=== PATIENT | male | born 1995 | race Caucasian/White ===

== ENCOUNTER 2025-06-05 21:09 | Observation (INO) | payer MEDICAID, SELFPAY ==
--- NOTE | ~2025-06-05 | CT_ITS ---
EXAMINATION: CT abdomen pelvis wo con DATE: 06/05/2025 23:46 INDICATION: Left flank pain. TECHNIQUE: Computed tomography (CT) of the abdomen and pelvis was performed without intravenous contr ast. The dose-length product was 1633.92 mGy-cm. Automated exposure control and iterative reconstruct ion technique were employed. COMPARISON: None. FINDINGS: Lung bases unremarkable. No significant pleural or pericardial effusion. Heart size normal. Fatty infiltration of the liver. There are cholecystectomy clips. There is a left internal ureteral stent with dilation of the left renal pelvis and renal collecting systems. There are multiple left re nal stones. Distal coil of the stent in the bladder. Proximal coil in the renal pelvis. No ureteral s tones identified. Mild left perinephric stranding. The spleen, pancreas, adrenal glands are unremarka ble. No significant vascular abnormality. No lymphadenopathy. Small accessory splenule. Prior appende ctomy. Small fat-containing umbilical hernia. No acute osseous abnormality. IMPRESSION: 1. Moderate dilation of the left renal collecting system and pelvis. Left internal ureteral stent in expected position. 2: Left nephrolithiasis. Reviewed, dictated and finalized at location [] IMPRESSION: 1. Moderate dilation of the left renal collecting system and pelvis. Left inter nal ureteral stent in expected position. 2: Left nephrolithiasis.
[2025-06-05 21:14] VITALS: BP 148/77; PULSE 97; RESP 20; O2SAT 97
[2025-06-05 22:41] LABS: Add Urine Microscopic? YES; Appearance Urine Turbid (Clear); Glucose Urine UA Negative (Negative); Leukocyte Esterase Ur 2+ LEU/UL (Negative); Need Manual Microscopic Reviewed; Nitrate Urine Negative (Negative); Specific Grav Ur 1.027 (1.001-1.035)
[2025-06-05 23:07] VITALS: BP 156/108; O2SAT 97
--- OUTSIDE RECORDS SUMMARY | 2025-06-05 23:40 | XMS_ITS | Clinical Summary ---
Author Organization 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 Role Phone No, Physician Primary Care Provider Allergies Active Allergy Reactions Criticality Noted Date Comments Penicillin G Unknown 03/21/2025 Medications tamsulosin (FLOMAX) 0.4 mg extended release capsuleIndicatio ns:Bladder Outlet Obstruction Take 1 capsule (0.4 mg total) by mouth daily 30 capsule 5 Active acetaminophen 500 mg capsuleIndicatio ns:Pain Take 2 capsules (1,000 mg total) by mouth every 6 (six) hours as needed for pain 30 capsule 5 Active trospium (SANCTURA) 20 mg tablet Take 1 tablet (20 mg total) by mouth 2 (two) times a day as needed (bladder spasm) 60 tablet 5 Active Active Problems Problem Noted Date Diagnosed Date Abnormal serum level of lipase 03/22/2025 Assessment & Plan (03/22/2025 2:45 PM CDT): Spurious asymptomatic elevated lipase level, no associated pain or symptoms to suggest pancreatitis, no abnormalities evident in pancreatic body or ducts within limits of non contrast CT imaging. Does not require any further workup or intervention at this time OK with discharge from end, barring any unforseen abnormalities on scrotal ultrasound Ureterolithiasis 03/21/2025 Ureteral stone with hydronephrosis 03/21/2025 Encounters Date Type Department Care Team Description 05/27/2025 Telephone [facility] Advanced Medicine ([facility]) - [facility]rology [address] 11th [place] [address] [place] [address] Garima Le B.A. 04/15/2025 Telephone [facility]rology [address] [place] [address] 11th [place] [address] [place] [address] Garima Le B.A. 04/10/2025 Telephone [facility] [address] [place] [address] [address]th [place] [address] Garima Le B.A. 04/07/2025 Telephone [facility] Urology [address] [place] [address] 11th [place] [address] Garima Le B.A. 03/24/2025 Telephone [facility]rology [address] [place] [address] 11th [place] [address] Garima Le, B.AEmily 03/21/2025 11:30 PM CDT - 03/22/2025 12:55 AM CDT Surgery [facility] Operating Room [address] [place] [address] Rachel Bryant MD CYSTOSCOPY, LEFT URETERAL STENT PLACEMENT, LEFT RETROGRADE PYELOGRAM 03/21/2025 11:09 PM CDT Anesthesia Event [facility] Operating Room [address] [place] [address] Alek Arana MD Najrabi, Khatera, CRNA 03/21/2025 9:48 AM CDT - 03/23/2025 12:51 PM CDT Hospital [address] [address] [place] MD Metcalf, Meredith, MD Ureterolithiasis (Primary Dx); Ureteral stone with hydronephrosis Discharge Disposition: Discharge to home or self care from Last 3 Months Social History Tobacco Use Types Packs/Day Years Used Date Smoking Tobacco: Every Day Vaping Started: 06/2019 Smokeless Tobacco: Never Tobacco Cessation:Ready to Q uit: No; Counseling Given: No Personal Safety Answer Date Recorded Have you ever been in or are you currently in a harmful physical or emotional relationship or is someone making you feel afraid or unsafe? Denies 03/21/2025 Sex and Gender Information Value Date Recorded Sex Assigned at Not on file Legal Sex Male 5:40 AM CDT Gender Identity Not on file Sexual Orientation Not on file Obstetrics History Last Filed Vital Signs Vital Sign Reading Time Taken Comments Blood Pressure 125/77 03/23/2025 12:00 PM CDT Pulse 68 03/23/2025 12:00 PM CDT Temperature 37 C (98.6 F) 03/23/2025 12:00 PM CDT Respiratory Rate 16 03/23/2025 12:00 PM CDT Oxygen Saturation 96% 03/23/2025 7:20 AM CDT Inhaled Oxygen Concentration - - Weight 113.4 kg (250 lb) 03/21/2025 1:40 PM CDT Height 180.3 cm (5' 11) 03/21/2025 1:40 PM CDT Body Mass Index 34.87 03/21/2025 1:40 PM CDT Plan of Treatment Health Maintenance Due Date Last Done Comments Depression Screening 1996 Hepatitis C Screening 1996 DTaP/Tdap/Td Vaccine (1 - Tdap) 2007 Varicella Vaccines (1 of 2 - 13+ 2-dose series) 2008 Hepatitis B Screening 2014 Regular Well Visit/Exam 18-64 2014 Pneumococcal vaccine <65 (1 of 2 - PCV) 2015 HPV Vaccines (1 - 3-dose SCDM series) 2023 Influenza Vaccine (#1) 2025 Medical Devices Implanted Type Area Vat Skimmer Device Identifier Shelf Expiration Date Model / Serial / Lot [employer] Universa 6fr 28cm Firm Positioner Monofilament Tether Stent [id number] - [id number] Implanted:Qty: 1 on 03/21/2025 by Rachel Bryant MD at [facility] Stent Left: Ureter [employer] 12/11/2027 [id number] / / [id number] Procedures Procedure Name Priority Date/Time Associated Diagnosis Comments FL FLUOROSCOPY < 1 HOUR IP Routine 03/29/2025 7:10 AM CDT US SCROTUM Pending Discharge 03/22/2025 12:16 PM CDT EGFR Timed 03/22/2025 6:54 AM CDT BASIC METABOLIC PANEL Timed 03/22/2025 6:54 AM CDT CBC WITHOUT DIFFERENTIAL Routine 03/22/2025 6:54 AM CDT N. GONORRHOEAE/C. TRACHOMATIS AMPLIFICATION STAT 03/22/2025 2:22 AM CDT NM AN PROCEDURE PLACEHOLDER Routine 03/21/2025 11:34 PM CDT NM AN ELECTIVE SUPRAGLOTTIC AIRWAY Routine 03/21/2025 11:34 PM CDT CYSTOSCOPY PLACEMENT URETERAL STENT 03/21/2025 11:14 PM CDT Ureteral stone with hydronephrosis TYPE AND SCREEN STAT 03/21/2025 12:16 PM CDT APTT STAT 03/21/2025 12:16 PM CDT PROTIME-INR STAT 03/21/2025 12:[address] BODY OUTSIDE CONSULT Routine 03/21/2025 11:01 AM CDT EGFR STAT 03/21/2025 10:18 AM CDT DIFFERENTIAL AUTO STAT 03/21/2025 10:18 AM CDT URINALYSIS AND REFLEX TO MICROSCOPIC STAT 03/21/2025 10:18 AM CDT LIPASE STAT 03/21/2025 10:18 AM CDT COMPREHENSIVE METABOLIC PANEL STAT 03/21/2025 10:18 AM CDT CBC WITH AUTO DIFFERENTIAL STAT 03/21/2025 10:18 AM CDT from Last 3 Months Results * FL Fluoroscopy < 1 Hour (03/29/2025 7:10 AM CDT) Narrative [facility] - 03/29/2025 7:10 AM CDT The images from this study are not interpreted by Radiology. Please refer to the physician's procedure / OR operative note. Rachel Bryant MD IMG FLUOROSCOPY PROCEDURES F inal Result [facility] * US Scrotum (03/22/2025 12:16 PM CDT) Anatomical Region Laterality Modality Testis N/A Ultrasound 03/23/2025 7:46 AM CDT Impressions 03/23/2025 7:46 AM CDT 1. No evidence of testicular torsion or suspicious testicular mass. 2. Small cystic lesion associated with the scrotum overlying the left testis, which is too small to definitively characterize, but may represent a tiny tunica albuginea cyst. Recommend continued clinical attention with repeat imaging if there is persistent growth. Electronically signed by: Young Li M.D. Narrative 03/23/2025 7:46 AM CDT EXAMINATION: SCROTAL SONOGRAM HISTORY: Nontraumatic left testicular pain. COMPARISON: None available. FINDINGS: The testes are normal in size and appearance. The right testis measures 4.8 cm by 3.4 cm by 2.4 cm and the left measures 4.8 cm by 3.3 cm by 2.4 cm. No focal lesions are seen. The right and left epidiymis are normal. Small cystic lesion associated with the scrotum overlying the left testis (image 50) which measures 0.3 cm in size, which is too small to definitively characterize, but may represent a small tunica albuginea cyst. Procedure Note Young Li MD - 03/23/2025 EXAMINATION: SCROTAL SONOGRAM HISTORY: Nontraumatic left testicular pain. COMPARISON: None available. FINDINGS: The testes are normal in size and appearance. The right testis measures 4.8 cm by 3.4 cm by 2.4 cm and the left measures 4.8 cm by 3.3 cm by 2.4 cm. No focal lesions are seen. The right and left epidiymis are normal. Small cystic lesion associated with the scrotum overlying the left testis (image 50) which measures 0.3 cm in size, which is too small to definitively characterize, but may represent a small tunica albuginea cyst. IMPRESSION: 1. No evidence of testicular torsion or suspicious testicular mass. 2. Small cystic lesion associated with the scrotum overlying the left testis, which is too small to definitively characterize, but may represent a tiny tunica albuginea cyst. Recommend continued clinical attention with repeat imaging if there is persistent growth. Electronically signed by: Young Li M.D. us Rachel Bryant MD IMG US PROCEDURES Final Resu lt * eGFR (03/22/2025 6:54 AM CDT) eGFR 78 >=60 mL/min/1. 73 m2 Comment: Interpretive Data Reference Interval Normal >/= 90 mL/min/1.73m2 Mildly decreased* 60 - 89 mL/min/1.73m2 Mildly to moderately decreased 45 - 59 mL/min/1.73m2 Moderately to severely decreased 30 - 44 mL/min/1.73m2 Severely decreased 15 - 29 mL/min/1.73m2 Kidney Failure < 15 mL/min/1.73m2 *Relative to young adult level Estimated glomerular filtration rate is determined by the 2020 CKD-EPI equation recommended by the National Kidney Foundation (A Unifying Approach to GFR Estimation: Recommendations of the NKF-ASK Task Force on Reassessing the Inclusion of Race in Diagnosing Kidney Disease, JASN 2020). The CKD-EPI equation should not be used for patients with unstable renal function and has not been validated in children and those over 70. Current interpretive data was last reviewed 2021. Blood 03/22/2025 6:54 AM CDT 03/22/2025 7:54 AM CDT Rachel Bryant MD LAB BLOOD ORDERABLES Final R esult Performing Organization Address [facility] Co de Phone Number [facility] [place] [address] * (ABNORMAL) CBC without differential (03/22/2025 6:54 AM CDT) WBC 7.80 3.80 - 9.90 K/cumm Hgb 13.5 13.0 - 17.5 g/dL [facility] Hct 39.7 38.9 - 50.3 % [facility] Plt 238 150 - 400 K/cumm [facility] MPV 8.9(L) 9.1 - 12.3 fL [facility] RBC 4.77 4.30 - 5.80 M/cumm [facility] MCV 83.2 81.3 - 96.4 fL [facility] MCH 28.3 27.1 - 33.3 pg [facility] MCHC 34.0 32.3 - 35.7 g/dL [facility] RDW CV 12.5 11.1 - 14.9 % [facility] RDW SD 37.8 35.7 - 48.1 fL [facility] NRBC abs 0.00 0.00 - 0.01 K/cumm [facility] Blood 03/22/2025 6:54 AM CDT 03/22/2025 7:16 AM CDT Rachel Bryant MD LAB BLOOD ORDERABLES Final R esult Performing Organization Address City/[facility]/ZIP Co de Phone Number [facility] Department [place] [address] * (ABNORMAL) Basic metabolic panel (03/22/2025 6:54 AM CDT) Pathologist [facility] Sodium 142 135 - 145 mmol/L Potassium, pl 3.9 3.3 - 4.9 mmol/L [facility] Comment:Reviewed Chloride 108 97 - 110 mmol/L [facility] CO2 27 22 - 32 mmol/L [facility] Anion gap 7 2 - 15 mmol/L [facility] BUN 11 6 - 25 mg/dL [facility] Creatinine 1.28 0.80 - 1.30 mg/dL [facility] Glucose 106 70 - 199 mg/dL [facility] Comment: Interpretive Data Fasting glucose >/= 126 mg/dl is diagnostic for diabetes. Fasting is defined as no caloric intake for at least 8 hours. Fasting glucose between 100 mg/dl to 125 mg/dl is diagnostic of prediabetes. In a patient with classic symptoms of hyperglycemia or hyperglycemic crisis, a random glucose >/= 200 mg/dl is diagnostic for diabetes. In the absence of unequivocal hyperglycemia, results should be confirmed by repeat testing. The classification and Diagnosis of Diabetes Diabetes Care 2021; 46: S19-S40. Current interpretive data was last revised 2022. Calcium 8.4(L) 8.5 - 10.3 mg/dL [facility] Blood 03/22/2025 6:54 AM CDT 03/22/2025 7:16 AM CDT Rachel Bryant MD LAB BLOOD ORDERABLES Final R esult [facility] [place] [address] * N. gonorrhoeae/C. trachomatis Amplification Urine (03/22/2025 2:22 AM CDT) C. trachomatis Not Detected Not Detected [facility] N. gonorrhoeae Not Detected Not Detected [facility] Comment: Interpretive Data This assay detects Chlamydia trachomatis and Neisseria gonorrhoeae by nucleic acid amplification testing (NAAT). This assay has been cleared by the [place] Food and Drug administration. The performance characteristics of this test have been verified by the [facility] Molecular Infectious Disease laboratory. The performance characteristics of this test have not been evaluated in individuals less than 14 years of age. Current Interpretive Data last revised 2023. Urine (None) 03/22/2025 2:22 AM CDT 03/22/2025 5:38 AM CDT Rachel Bryant MD LAB MICROBIOLOGY - GENERAL O RDERABLES Final Result Performing Organization Address City/[facility]/ZIP Co de Phone Number [facility] [place] [address] [facility] * NM AN ELECTIVE SUPRAGLOTTIC AIRWAY, NM AN PROCEDURE PLACEHOLDER (03/21/2025 11:34 PM CDT) Narrative Rustam Everett, JESSIE - 03/21/2025 11:34 PM CDT Rustam Everett, JESSIE 03/21/2025 11:34 PM Airway Patient location: OR Urgency: elective Indications for airway management: anesthesia Difficult airway: no Emergent airway documentation: Risks and benefits discussed: yes Consent obtained: yes Consent given by: parent Airway prep: Preoxygenated: yes Patient position: sniffing MILS maintained throughout: yes Mask difficulty assessment: 0 - not attempted Spontaneous ventilation during airway: present Sedation level during airway: GA Final airway details: Final airway type: supraglottic airway Final supraglottic airway: IGel SGA size: 5 Number of attempts: 1no Alek Arana MD ANESTHESIA ORDERABLES Fi nal Result * aPTT (03/21/2025 12:16 PM CDT) aPTT 36 28 - 38 sec Comment: Interpretive Data Heparin therapeutic range: 66.0 - 100.0 seconds. Range based on correlation with therapeutic heparin activity range of 0.3 - 0.7 Units/mL. Current interpretive data was last revised on 2023. Blood 03/21/2025 12:1 6 PM CDT 03/21/2025 12:30 PM CDT [place] Howard MD LAB BLOOD ORDERABLES Patricia l Result Performing Organization Address City/[facility]/ZIP Co de Phone Number [facility] [place] [address] * (ABNORMAL) Protime-INR (03/21/2025 12:16 PM CDT) PT 15.5(H) 9.7 - 13.0 sec INR 1.42(H) 0.90 - 1.20 [facility] Comment: Interpretive data Oral anticoagulant therapeutic ranges: Venous thromboembolism prophylaxis or treatment: 2.0-3.0 CARDIOLOGY Standard range: 2.0-3.0 High-intensity range: 2.5-3.5 Refer to indication-specific guidelines for appropriate target ranges for prosthetic heart valve replacement. Current interpretive data was last revised on 2019. Blood 03/21/2025 12:1 6 PM CDT 03/21/2025 12:30 PM CDT [place] Howard MD LAB BLOOD ORDERABLES Patricia l Result Performing Organization Address City/[facility]/[place] [address] * Type and screen (03/21/2025 12:16 PM CDT) Pathologist [facility] Vanesa, indirect Negative ABO Rh A Negative [facility] Blood 03/21/2025 12:1 6 PM CDT 03/21/2025 12:30 PM CDT Narrative [facility] - 03/21/2025 1:18 PM CDT Has the patient had Daratumumab or Isatuximab in the past 6 months?->Unknown [place] Howard MD LAB BLOOD BANK TEST [place] [address] * CT Body Outside Consult (03/21/2025 11:01 AM CDT) Anatomical Region Laterality Modality Body N/A Computed Tomogra phy 03/21/2025 11:1 7 AM CDT Impressions 03/21/2025 11:17 AM CDT 1. Left hydronephrosis and hydroureter to the level of a 1 cm x 0.7 cm stone at the left ureteropelvic junction. This stone is seen between the transverse processes of L2 and L3. 2. 2 other punctate parenchymal stones on the left. 3. No right nephrolithiasis. The findings, conclusions and recommendations within this report do not replace the initial findings, conclusions and recommendations made at the facility where the study was performed based upon the imaging and clinical condition at that time. Comparison with the prior report and clinical history is necessary. The provided images may or may not represent the [employer] source data set and thus may contain changes that may lower the accuracy of this second-opinion interpretation. Electronically signed by: Johanna Morales 03/21/2025 11:17 AM CDT EXAMINATION: RADIOLOGY CONSULTATION ON OUTSIDE IMAGING STUDY STUDY INITIALLY PERFORMED: [facility] 03/21/2025 TYPE OF STUDY: Multiple CT images of the abdomen and pelvis are performed without intravenous contrast. The protocol was adequate to address the clinical question. The outside final report was not available at the time of this second opinion interpretation. TYPE OF CONSULTATION: Consult on outside imaging study with images submitted through Outside Image Sharing Service DATE OF CONSULTATION: 03/21/2025 11:08 AM HISTORY: Nephrolithiasis COMPARISON: None available. FINDINGS: The heart size is within normal limits. There is no pleural or pericardial effusion. The lung bases are clear. The spleen and pancreas are normal. Adrenal glands are unremarkable. The imaged portion of the liver is mildly steatotic. Patient is post cholecystectomy. The right kidney is normal in appearance without hydronephrosis or nephrolithiasis. Left hydronephrosis and hydroureter can be seen to the level of stone that measures 1 cm x 7 mm. This is seen at the level of the ureteropelvic junction. A 1 mm stone is seen left lower pole parenchyma. A 3 mm stone is seen within the left mid zone parenchyma. Mild stranding is seen surrounding the left renal pelvis and proximal ureter. The urinary bladder is fluid-filled but not thickened. The colon and small bowel are normal in course and caliber. Patient is post an appendectomy. The urinary bladder is decompressed. The bone windows do not demonstrate any osseous lesion. Procedure Note Michael Blanco MD - 03/21/2025 EXAMINATION: RADIOLOGY CONSULTATION ON OUTSIDE IMAGING STUDY STUDY INITIALLY PERFORMED: [facility] 03/21/2025 TYPE OF STUDY: Multiple CT images of the abdomen and pelvis are performed without intravenous contrast. The protocol was adequate to address the clinical question. The outside final report was not available at the time of this second opinion interpretation. TYPE OF CONSULTATION: Consult on outside imaging study with images submitted through Outside Image Sharing Service DATE OF CONSULTATION: 03/21/2025 11:08 AM HISTORY: Nephrolithiasis COMPARISON: None available. FINDINGS: The heart size is within normal limits. There is no pleural or pericardial effusion. The lung bases are clear. The spleen and pancreas are normal. Adrenal glands are unremarkable. The imaged portion of the liver is mildly steatotic. Patient is post cholecystectomy. The right kidney is normal in appearance without hydronephrosis or nephrolithiasis. Left hydronephrosis and hydroureter can be seen to the level of stone that measures 1 cm x 7 mm. This is seen at the level of the ureteropelvic junction. A 1 mm stone is seen left lower pole parenchyma. A 3 mm stone is seen within the left mid zone parenchyma. Mild stranding is seen surrounding the left renal pelvis and proximal ureter. The urinary bladder is fluid-filled but not thickened. The colon and small bowel are normal in course and caliber. Patient is post an appendectomy. The urinary bladder is decompressed. The bone windows do not demonstrate any osseous lesion. IMPRESSION: 1. Left hydronephrosis and hydroureter to the level of a 1 cm x 0.7 cm stone at the left ureteropelvic junction. This stone is seen between the transverse processes of L2 and L3. 2. 2 other punctate parenchymal stones on the left. 3. No right nephrolithiasis. The findings, conclusions and recommendations within this report do not replace the initial findings, conclusions and recommendations made at the facility where the study was performed based upon the imaging and clinical condition at that time. Comparison with the prior report and clinical history is necessary. The provided images may or may not represent the [employer] source data set and thus may contain changes that may lower the accuracy of this second-opinion interpretation. Electronically signed by: Michael Blanco M.D. us [place] Howard MD IMG CT PROCEDURES Final R esult * eGFR (03/21/2025 10:18 AM CDT) eGFR 74 >=60 mL/min/1. 73 m2 Comment: Interpretive Data Reference Interval Normal >/= 90 mL/min/1.73m2 Mildly decreased* 60 - 89 mL/min/1.73m2 Mildly to moderately decreased 45 - 59 mL/min/1.73m2 Moderately to severely decreased 30 - 44 mL/min/1.73m2 Severely decreased 15 - 29 mL/min/1.73m2 Kidney Failure < 15 mL/min/1.73m2 *Relative to young adult level Estimated glomerular filtration rate is determined by the 2020 CKD-EPI equation recommended by the National Kidney Foundation (A Unifying Approach to GFR Estimation: Recommendations of the NKF-ASK Task Force on Reassessing the Inclusion of Race in Diagnosing Kidney Disease, JASN 2020). The CKD-EPI equation should not be used for patients with unstable renal function and has not been validated in children and those over 70. Current interpretive data was last reviewed 2021. Blood 03/21/2025 10:1 8 AM CDT 03/21/2025 10:33 AM CDT Tammy Fuentes MD LAB BLOOD ORDERABLES Final Result [facility] [place] [address] * (ABNORMAL) Differential, auto (03/21/2025 10:18 AM CDT) Neutrophil abs 9.99(H) 1.50 - 6.50 K/cumm Imm gran abs 0.09 0.00 - 0.10 K/cumm [facility] Lymphocyte abs 1.30 0.80 - 3.30 K/cumm [facility] Monocyte abs 1.05(H) 0.20 - 0.80 K/cumm [facility] Eosinophil abs 0.02 0.00 - 0.50 K/cumm [facility] Basophil abs 0.05 0.00 - 0.10 K/cumm [facility] Neutrophil pct 79.9 % [facility] Comment: Interpretive Data Percent cell count reference ranges are not reported, since discordance with absolute values may lead to misinterpretation of CBC data. Current Interpretive Data was last revised on 2018. Imm gran pct 0.7 % [facility] Comment: Interpretive Data Percent cell count reference ranges are not reported, since discordance with absolute values may lead to misinterpretation of CBC data. Current Interpretive Data was last revised on 2018. Lymphocyte pct 10.4 % [facility] Comment: Interpretive Data Percent cell count reference ranges are not reported, since discordance with absolute values may lead to misinterpretation of CBC data. Current Interpretive Data was last revised on 2018. Monocyte pct 8.4 % [facility] Comment: Interpretive Data Percent cell count reference ranges are not reported, since discordance with absolute values may lead to misinterpretation of CBC data. Current Interpretive Data was last revised on 2018. Eosinophil pct 0.2 % [facility] Comment: Interpretive Data Percent cell count reference ranges are not reported, since discordance with absolute values may lead to misinterpretation of CBC data. Current Interpretive Data was last revised on 2018. Basophil pct 0.4 % [facility] Comment: Interpretive Data Percent cell count reference ranges are not reported, since discordance with absolute values may lead to misinterpretation of CBC data. Current Interpretive Data was last revised on 2018. Blood 03/21/2025 10:1 8 AM CDT 03/21/2025 10:33 AM CDT Tammy Fuentes MD LAB BLOOD ORDERABLES Final Result [facility] Department [place] [address] * (ABNORMAL) Urinalysis reflex to microscopic (03/21/2025 10:18 AM CDT) Color, ur Yellow Yellow Clarity, ur Clear Clear [facility] Specific gravity, ur 1.031(H) 1.003 - 1.030 [facility] pH, urine 7.5 [facility] Comment: Interpretive Data U rine pH is affected by diet, medications, systemic acid-base disturbances, and renal tubular function. pH may affect urinary stone formation. For example, urine pH below 6.0 may help reduce the tendency for calcium phosphate stones and pH greater than 6.0 may reduce the tendency for uric acid stone formation. Source: [facility] Current Interpretive Data was last revised on 2017 Protein, ur ql Trace Negative [facility] Glucose, ur ql Negative Negative [facility] Ketones, ur Negative Negative [facility] Bilirubin, ur Negative Negative [facility] Blood, ur Negative Negative [facility] Urobilinogen, ur <2.0 <2.0 mg/dL [facility] Nitrite, ur Negative Negative [facility] Leukocyte esterase, ur Negative Negative [facility] UA reflex comment Reflex conditions for microscopic UA not met. [facility] Urine 03/21/2025 10:1 8 AM CDT 03/21/2025 10:24 AM CDT North Howard MD LAB URINE ORDERABLES Patricia brown Result [facility] [place] [address] * (ABNORMAL) CBC with auto differential (03/21/2025 10:18 AM CDT) [facility] WBC 12.50(H) 3.80 - 9.90 K/cumm Hgb 15.5 13.0 - 17.5 g/dL [facility] Hct 44.0 38.9 - 50.3 % [facility] Plt 322 150 - 400 K/cumm [facility] MPV 9.1 9.1 - 12.3 fL [facility] RBC 5.37 4.30 - 5.80 M/cumm [facility] MCV 81.9 81.3 - 96.4 fL [facility] MCH 28.9 27.1 - 33.3 pg [facility] MCHC 35.2 32.3 - 35.7 g/dL [facility] RDW CV 12.9 11.1 - 14.9 % [facility] RDW SD 37.5 35.7 - 48.1 fL [facility] NRBC abs 0.00 0.00 - 0.01 K/cumm [facility] Blood Venous blood specimen / Unknown 03/21/2025 10:18 AM CDT 03/21/2025 10:33 AM CDT North Howard MD LAB BLOOD ORDERABLES Patricia l Result [facility] [place] [address] * (ABNORMAL) Lipase (03/21/2025 10:18 AM CDT) [facility] Lipase 187(H) 10 - 99 Units/L Blood Venous blood specimen / Unknown 03/21/2025 10:18 AM CDT 03/21/2025 10:33 AM CDT North Howard MD LAB BLOOD ORDERABLES Patricia l Result [facility] [place] [address] * (ABNORMAL) Comprehensive metabolic panel (03/21/2025 10:18 AM CDT) Pathologist [facility] Sodium 141 135 - 145 mmol/L Potassium, pl See Comment 3.3 - 4.9 mmol/L [facility] Comment:Credited; Hemolyzed Specimen Chloride 106 97 - 110 mmol/L [facility] CO2 25 22 - 32 mmol/L [facility] Anion gap 10 2 - 15 mmol/L [facility] BUN 14 6 - 25 mg/dL [facility] Creatinine 1.34(H) 0.80 - 1.30 mg/dL [facility] Glucose 126 70 - 199 mg/dL [facility] Comment: Interpretive Data Fasting glucose >/= 126 mg/dl is diagnostic for diabetes. Fasting is defined as no caloric intake for at least 8 hours. Fasting glucose between 100 mg/dl to 125 mg/dl is diagnostic of prediabetes. In a patient with classic symptoms of hyperglycemia or hyperglycemic crisis, a random glucose >/= 200 mg/dl is diagnostic for diabetes. In the absence of unequivocal hyperglycemia, results should be confirmed by repeat testing. The classification and Diagnosis of Diabetes Diabetes Care 202; 46: S19-S40. Current interpretive data was last revised 2022. Calcium 9.3 8.5 - 10.3 mg/dL [facility] Bilirubin, total 0.5 0.1 - 1.2 mg/dL [facility] Protein, pl 7.7 6.5 - 8.5 g/dL [facility] Albumin 4.4 3.5 - 5.0 g/dL [facility] Alk phos 98 40 - 130 Units/L [facility] Comment:Hemolyzed; result ma y be falsely decreased ALT See Comment 7 - 55 Units/L [facility] Comment:Credited; Hemolyzed Specimen AST See Comment 10 - 50 Units/L [facility] Comment:Credited; Hemolyzed Specimen Blood Venous blood specimen / Unknown 03/21/2025 10:18 AM CDT 03/21/2025 10:33 AM CDT North Howard MD LAB BLOOD ORDERABLES Patricia kevin Result [facility] [place] [address] from Last 3 Months Advance Directives For more information, please contact: [phone] * Full Code (Latest Code Status on File) Date Activated Date Inactivated Comments 03/21/2025 1:54 PM 03/23/2025 4:56 PM Care Teams Polymerization Engineer Relationship Specialty Start Date End Date No, Physician PCP - General 03/21/25
--- OUTSIDE RECORDS SUMMARY | 2025-06-05 23:40 | XMS_ITS | Referral Summary ---
Author Organization [facility] Address [address] [place] [address] Care Team Providers Care Cookie Mixer Helper Name Role Phone No, Physician Primary Care Provider [phone] Encounters Date Type Department Care Team Description 05/27/2025 Telephone [facility] - [facility] Urology [facility] Advanced [facility] [address]th [place] [address] Garima Le, BEthel 04/15/2025 Telephone [facility] ([facility]) - [facility] Urology [address] [facility] [address]th [place] [address] Garima Le, BEthel 04/10/2025 Telephone [facility] ([facility] - [facility] Urology [facility] 11th [place] [address] Garima Le, B.AEmily 04/07/2025 Telephone [facility] ([facility] - [facility] Urology [address] [facility] Advanced Medicine 11th [place] [address] Garima Le, BEthel 03/24/2025 Telephone [facility] ([facility] - [facility] Urology [address] [facility] Advanced Medicine 11th [place] [address] Garima Le, BEthel 03/21/2025 9:48 AM CDT - 03/23/2025 12:51 PM CDT Hospital Encounter [facility] [address] [place] [address] North Howard MD Metcalf, Meredith, MD Ureterolithiasis (Primary Dx); Ureteral stone with hydronephrosis Discharge Disposition: Discharge to home or self care 03/21/2025 11:09 PM CDT Anesthesia Event [facility] Operating Room [address] [place] [address] Alek Arana MD Najrabi, Khatera, CRNA 03/21/2025 11:30 PM CDT - 03/22/2025 12:[address] [facility] Operating Room [address] [place] [id number] Rachel Bryant MD CYSTOSCOPY, LEFT URETERAL STENT PLACEMENT, LEFT RETROGRADE PYELOGRAM from Last 3 Months Allergies Active Allergy Reactions Criticality Noted Date [...] at this time OK with discharge from my end, barring any unforseen abnormalities on scrotal ultrasound Ureterolithiasis 03/21/2025 Ureteral stone with hydronephrosis 03/21/2025 Social History Tobacco Use Types Packs/Day Years [...] on file Sexual Orientation Not on file Last Filed Vital Signs Vital Sign Reading [...] 03/21/2025 1:40 PM CDT Plan of Treatment Not on file Medical Devices Implanted Type Area Chief Medical Technologist Device Identifier Shelf Expiration Date Model / Serial / Lot [employer] Universa 6fr 28cm Firm Positioner Monofilament Tether Stent [id number] - [id number] Implanted:Qty: 1 on 03/21/2025 by Rachel Bryant MD at [facility] Stent Left: Ureter [employer] 12/11/2027 [id number] / / [id number] Procedures Procedure Name Priority Date/Time Associated Diagnosis Comments FL FLUOROSCOPY < 1 HOUR IP Routine 03/29/2025 7:10 AM CDT US SCROTUM Pending Discharge 03/22/2025 12:16 PM CDT EGFR Timed 03/22/2025 6:54 AM CDT BASIC METABOLIC PANEL Timed 03/22/2025 6:54 AM CDT CBC WITHOUT DIFFERENTIAL Routine 03/22/2025 6:54 AM CDT N. GONORRHOEAE/C. TRACHOMATIS AMPLIFICATION STAT 03/22/2025 2:22 AM CDT ME AN PROCEDURE PLACEHOLDER Routine 03/21/2025 11:34 PM CDT ME AN ELECTIVE SUPRAGLOTTIC AIRWAY Routine 03/21/2025 11:34 [...] is persistent growth. Electronically signed by: Young iL M.D. Narrative 03/23/2025 7:46 AM CDT EXAMINATION: [...] growth. Electronically signed by: Young Li M.D. Rachel Bryant MD IMG US PROCEDURES Final [...] of Race in Diagnosing Kidney Disease, JASN 202). The CKD-EPI equation should not be used for patients with unstable renal function and has not been validated in children and those over 70. Current interpretive data was last reviewed 2021. Blood 03/22/2025 6:54 AM CDT 03/22/2025 7:54 AM CDT Rachel Bryant MD LAB BLOOD ORDERABLES Final R esult [facility] Department [place] [address] * (ABNORMAL) CBC without differential (03/22/2025 6:54 AM CDT) [facility] WBC 7.80 3.80 - 9.90 K/cumm Hgb 13.5 13.0 - 17.5 g/dL [facility] Hct 39.7 38.9 - 50.3 % [facility] Plt 238 150 - 400 K/cumm [facility] MPV 8.9(L) 9.1 - 12.3 fL [facility] RBC 4.77 4.30 - 5.80 M/cumm [facility] MCV 83.2 81.3 - 96.4 fL [facility] MCH 28.3 27.1 - 33.3 pg [facility] MCHC 34.0 32.3 - 35.7 g/dL [facility] RDW CV 12.5 11.1 - 14.9 % [facility] RDW SD 37.8 35.7 - 48.1 fL [facility] NRBC abs 0.00 0.00 - 0.01 K/cumm [facility] Blood 03/22/2025 6:54 AM CDT 03/22/2025 7:16 AM CDT us Rachel Bryant MD LAB BLOOD ORDERABLES Final R esult [facility] Department [place] [address] * (ABNORMAL) Basic metabolic panel (03/22/2025 6:54 AM CDT) [facility] Sodium 142 135 - 145 mmol/L Potassium, pl 3.9 3.3 - 4.9 mmol/L [facility] Comment:Reviewed Chloride 108 97 - 110 mmol/L [facility] CO2 27 22 - 32 mmol/L [facility] Anion gap 7 2 - 15 mmol/L [facility] BUN 11 6 - 25 mg/dL [facility] Creatinine 1.28 0.80 - 1.30 mg/dL [facility] Glucose 106 70 - 199 mg/dL [facility] Comment: Interpretive Data Fasting glucose >/= 126 [...] 2022. Calcium 8.4(L) 8.5 - 10.3 mg/dL [facility] Blood 03/22/2025 6:54 AM CDT 03/22/2025 7:16 AM CDT Rachel Bryant MD LAB BLOOD ORDERABLES Final R esult Performing Organization Address [facility] de Phone Number [facility] Department [place] [place] [address] * N. gonorrhoeae/C. trachomatis Amplification Urine (03/22/2025 2:22 AM CDT) C. trachomatis Not Detected Not Detected [facility] N. gonorrhoeae Not Detected Not Detected [facility] Comment: Interpretive Data This assay detects Chlamydia trachomatis and Neisseria gonorrhoeae by nucleic acid amplification testing (NAAT). This assay has been cleared by the [place] Food and Drug administration. The performance characteristics of this test have been verified by the [facility] Molecular Infectious Disease laboratory. The performance characteristics of this test have not been evaluated in individuals less than 14 years of age. Current Interpretive Data last revised 2023. Urine (None) 03/22/2025 2:22 AM CDT 03/22/2025 5:38 AM CDT Rachel Bryant MD LAB MICROBIOLOGY - GENERAL O RDERABLES Final Result Performing Organization Address [facility] de Phone Number [facility] Department [place] [place] [address] [facility] * ME AN ELECTIVE SUPRAGLOTTIC AIRWAY, ME AN PROCEDURE PLACEHOLDER (03/21/2025 11:34 PM CDT) Narrative Rustam Everett CRNA - 03/21/2025 11:34 PM CDT Rustam Everett, [...] MD LAB BLOOD ORDERABLES Patricia l Result [facility] Department [place] [address] * (ABNORMAL) Protime-INR (03/21/2025 12:16 PM CDT) PT 15.5(H) 9.7 - 13.0 sec INR 1.42(H) 0.90 - 1.20 [facility] Comment: Interpretive data Oral anticoagulant therapeutic ranges: Venous thromboembolism prophylaxis or treatment: 2.0-3.0 CARDIOLOGY Standard range: 2.0-3.0 High-intensity range: 2.5-3.5 Refer to indication-specific guidelines for appropriate target ranges for prosthetic heart valve replacement. Current interpretive data was last revised on 2019. Blood 03/21/2025 12:1 6 PM CDT 03/21/2025 12:30 PM CDT North Howard MD LAB BLOOD ORDERABLES Patricia l Result Performing Organization Address [facility] Co de Phone Number [facility] [place] [address] * Type and screen (03/21/2025 12:16 PM CDT) Vanesa, indirect Negative ABO Rh A Negative [facility] Blood 03/21/2025 12:1 6 PM CDT 03/21/2025 12:30 PM CDT Narrative [facility] - 03/21/2025 1:18 PM CDT Has the patient had Daratumumab or Isatuximab in the past 6 months?->Unknown North Howard MD LAB BLOOD BANK TEST ORDER PRAVEENA Final Result Performing Organization Address [facility] de Phone Number [facility] Department [place] [address] * CT Body Outside Consult (03/21/2025 11:01 [...] images may or may not represent the nome source data set and thus may contain changes that may lower the accuracy of this second-opinion interpretation. Electronically signed by: Johanna Morales 03/21/2025 11:17 AM CDT EXAMINATION: RADIOLOGY CONSULTATION ON OUTSIDE IMAGING STUDY STUDY INITIALLY PERFORMED: [facility] 03/21/2025 TYPE OF STUDY: Multiple CT images [...] ON OUTSIDE IMAGING STUDY STUDY INITIALLY PERFORMED: [facility] 03/21/2025 TYPE OF STUDY: Multiple CT images [...] images may or may not represent the nome source data set and thus may contain changes that may lower the accuracy of this second-opinion interpretation. Electronically signed by: Michael Blanco M.D. North Howard MD IMG CT PROCEDURES Final [...] of Race in Diagnosing Kidney Disease, JASN 202). The CKD-EPI equation should not be used for patients with unstable renal function and has not been validated in children and those over 70. Current interpretive data was last reviewed 2021. Blood 03/21/2025 10:1 8 AM CDT 03/21/2025 10:33 AM CDT Tammy Fuentes MD LAB BLOOD ORDERABLES Final Result [facility] Department [place] [address] * (ABNORMAL) Differential, auto (03/21/2025 10:18 AM CDT) Neutrophil abs 9.99(H) 1.50 - 6.50 K/cumm Imm gran abs 0.09 0.00 - 0.10 K/cumm [facility] Lymphocyte abs 1.30 0.80 - 3.30 K/cumm [facility] Monocyte abs 1.05(H) 0.20 - 0.80 K/cumm [facility] Eosinophil abs 0.02 0.00 - 0.50 K/cumm [facility] Basophil abs 0.05 0.00 - 0.10 K/cumm [facility] Neutrophil pct 79.9 % [facility] Comment: Interpretive Data Percent cell count reference ranges are not reported, since discordance with absolute values may lead to misinterpretation of CBC data. Current Interpretive Data was last revised on 2018. Imm gran pct 0.7 % [facility] Comment: Interpretive Data Percent cell count reference ranges are not reported, since discordance with absolute values may lead to misinterpretation of CBC data. Current Interpretive Data was last revised on 2018. Lymphocyte pct 10.4 % [facility] Comment: Interpretive Data Percent cell count reference ranges are not reported, since discordance with absolute values may lead to misinterpretation of CBC data. Current Interpretive Data was last revised on 2018. Monocyte pct 8.4 % [facility] Comment: Interpretive Data Percent cell count reference ranges are not reported, since discordance with absolute values may lead to misinterpretation of CBC data. Current Interpretive Data was last revised on 2018. Eosinophil pct 0.2 % [facility] Comment: Interpretive Data Percent cell count reference ranges are not reported, since discordance with absolute values may lead to misinterpretation of CBC data. Current Interpretive Data was last revised on 2018. Basophil pct 0.4 % [facility] Comment: Interpretive Data Percent cell count reference ranges are not reported, since discordance with absolute values may lead to misinterpretation of CBC data. Current Interpretive Data was last revised on 2018. Blood 03/21/2025 10:1 8 AM CDT 03/21/2025 10:33 AM CDT Tammy Fuentes MD LAB BLOOD ORDERABLES Final Result [facility] Department [place] [address] * (ABNORMAL) Urinalysis reflex to microscopic (03/21/2025 10:18 AM CDT) Color, ur Yellow Yellow Clarity, ur Clear Clear [facility] Specific gravity, ur 1.031(H) 1.003 - 1.030 [facility] pH, urine 7.5 [facility] Comment: Interpretive Data U rine pH is affected by diet, medications, systemic acid-base disturbances, and renal tubular function. pH may affect urinary stone formation. For example, urine pH below 6.0 may help reduce the tendency for calcium phosphate stones and pH greater than 6.0 may reduce the tendency for uric acid stone formation. Source: [facility] [employer] Current Interpretive Data was last revised on 2017 Protein, ur ql Trace Negative [facility] Glucose, ur ql Negative Negative [facility] Ketones, ur Negative Negative [facility] Bilirubin, ur Negative Negative [facility] Blood, ur Negative Negative [facility] Urobilinogen, ur <2.0 <2.0 mg/dL [facility] Nitrite, ur Negative Negative [facility] Leukocyte esterase, ur Negative Negative [facility] UA reflex comment Reflex conditions for microscopic UA not met. [facility] Urine 03/21/2025 10:1 8 AM CDT 03/21/2025 10:24 AM CDT us North Howard MD LAB URINE ORDERABLES Patricia brown Result [facility] Department [place] [address] * (ABNORMAL) CBC with auto differential (03/21/2025 10:18 AM CDT) WBC 12.50(H) 3.80 - 9.90 K/cumm Hgb 15.5 13.0 - 17.5 g/dL [facility] Hct 44.0 38.9 - 50.3 % [facility] Plt 322 150 - 400 K/cumm [facility] MPV 9.1 9.1 - 12.3 fL [facility] RBC 5.37 4.30 - 5.80 M/cumm [facility] MCV 81.9 81.3 - 96.4 fL [facility] MCH 28.9 27.1 - 33.3 pg [facility] MCHC 35.2 32.3 - 35.7 g/dL [facility] RDW CV 12.9 11.1 - 14.9 % [facility] RDW SD 37.5 35.7 - 48.1 fL [facility] NRBC abs 0.00 0.00 - 0.01 K/cumm [facility] Blood Venous blood specimen / Unknown 03/21/2025 10:18 AM CDT 03/21/2025 10:33 AM CDT North Howard MD LAB BLOOD ORDERABLES Patricia l Result [facility] Department [place] [address] * (ABNORMAL) Lipase (03/21/2025 10:18 AM CDT) Lipase 187(H) 10 - 99 Units/L Blood Venous blood specimen / Unknown 03/21/2025 10:18 AM CDT 03/21/2025 10:33 AM CDT North Howard MD LAB BLOOD ORDERABLES Patricia l Result Performing Organization Address [facility] Co de Phone Number [facility] Department [place] [address] * (ABNORMAL) Comprehensive metabolic panel (03/21/2025 10:18 AM CDT) Pathologist [facility] Sodium 141 135 - 145 mmol/L Potassium, pl See Comment 3.3 - 4.9 mmol/L [facility] Comment:Credited; Hemolyzed Specimen Chloride 106 97 - 110 mmol/L [facility] CO2 25 22 - 32 mmol/L [facility] Anion gap 10 2 - 15 mmol/L [facility] BUN 14 6 - 25 mg/dL [facility] Creatinine 1.34(H) 0.80 - 1.30 mg/dL [facility] Glucose 126 70 - 199 mg/dL [facility] Comment: Interpretive Data Fasting glucose >/= 126 [...] 2022. Calcium 9.3 8.5 - 10.3 mg/dL [facility] Bilirubin, total 0.5 0.1 - 1.2 mg/dL [facility] Protein, pl 7.7 6.5 - 8.5 g/dL [facility] Albumin 4.4 3.5 - 5.0 g/dL [facility] Alk phos 98 40 - 130 Units/L [facility] Comment:Hemolyzed; result ma y be falsely decreased ALT See Comment 7 - 55 Units/L [facility] Comment:Credited; Hemolyzed Specimen AST See Comment 10 - 50 Units/L [facility] Comment:Credited; Hemolyzed Specimen Blood Venous blood specimen / Unknown 03/21/2025 10:18 AM CDT 03/21/2025 10:33 AM CDT North Howard MD LAB BLOOD ORDERABLES Patricia kevin Result [facility] Department [place] [address] from Last 3 Months Advance Directives For more information, please contact: [phone] * Full Code (Latest Code Status on File) Date Activated Date Inactivated Comments 03/21/2025 1:54 PM 03/23/2025 4:56 PM Care Teams Cookie Mixer Helper Relationship Specialty Start Date End Date No, Physician PCP - General 03/21/25
[2025-06-05] MEDS: MORPHINE SULFATE (*CRX) 4 MG/ML INJ IV PUSH (23:58)
[2025-06-05] MEDS: ONDANSETRON INJ 4 MG/2 ML VIAL IV PUSH (23:58)
[2025-06-06] VITALS (20 sets, daily range): BP systolic 108–146; BP diastolic 64–82; PULSE 56–78; RESP 13–18; TEMP 36.2–37.2; O2SAT 94–100; BMI 37.2
[2025-06-06 00:19] LABS: Anion Gap 8 mmol/L (4-12); Blood Urea Nitrogen 12 mg/dL (9-20); Calcium 9.2 mg/dL (8.4-10.2); Carbon Dioxide 24 mmol/L (22-30); Chloride 102 mmol/L (98-107); Estimated Glomerular Filt Rate > 60; Glucose 108 mg/dL (65-110); Potassium 3.4 mmol/L (3.4-5.0); Sodium 134 mmol/L (137-145)
[2025-06-06 00:34] LABS: Hematocrit 43.4 % (42.0-52.0); Hemoglobin 14.9 g/dL (14.0-18.0); Immature Granulocyte Percent A 1.2 % (0-0.5); Lymphocytes Absolute Auto 3.26 K/mm3 (0.9-3.2); Mean Corpuscular HGB Conc 34.3 g/dl (32-36); Mean Corpuscular Hemoglobin 28.8 pg (26-34); Mean Corpuscular Volume 83.8 fl (80-100); Nucleated Red Blood Cells Absolute Auto 0.000 K/mm3 (0.0-0.012); Nucleated Red Blood Cells Perc 0.0 % (0.0-0.2); Platelet Count Result 350 k/mm3 (150-375); Red Blood Count 5.18 M/mm3 (4.6-6.20); White Blood Count 8.7 K/mm3 (4.5-10.0)
--- NOTE | 2025-06-06 00:35 | ED.MALEGU ---
HPI - Male Genitourinary General Chief complaint: Urogenital-Male <JOANNA Braun Last Filed: 06/06/25 17:09> Stated complaint: flank pain <JOANNA Braun Last Filed: 06/06/25 17:09> Time Seen by Provider: 06/05/25 23:19 <JOANNA Braun Last Filed: 06/06/25 17:09> Source: patient <JOANNA Braun Last Filed: 06/06/25 17:09> Mode of arrival: ambulatory <JOANNA Braun Last Filed: 06/06/25 17:09> Limitations: no limitations <JOANNA Braun Last Filed: 06/06/25 17:09> History of Present Illness HPI Narrative: Patient is a 29-year-old male who presents the ED with report of left flank pain. Patient reports long history of large kidney stones. States he was recently diagnosed with a proximal 26 mm kidney stone in his left side. He was seen at [facility] for this for months ago and had a ureteral stent placed. He states he does not currently have medical insurance and [facility] has refused to remove the stent for him to undergo lithotripsy due to his lack of insurance. He reports having worsening pain throughout his left flank and left-sided abdomen. Reports constant hematuria with blood clots, dysuria. Reports nausea with increased pain. Denies vomiting. Denies fevers. <JOANNA Braun Last Filed: 06/06/25 17:09> Related Data Home medications: Home Medications ?Medication ?Instructions ?Recorded ?Confirmed ?Last Taken ?Type No Home Medications 06/06/25 06/06/25 Unknown History <JOANNA Braun Last Filed: 06/06/25 17:09> Allergies/Adverse reactions: Allergies Allergy/AdvReac Type Severity Reaction Status Date / Time Penicillins Allergy Unknown Anaphylaxis Verified 06/06/25 12:51 <JOANNA Braun Last Filed: 06/06/25 17:09> Review of Systems Review of Systems: All systems reviewed & are unremarkable except as noted in HPI. <Jocelyn Encinas PA-C - Last Filed: 06/06/25 17:09> All systems reviewed & are unremarkable except as noted in HPI and below <Jocelyn Encinas PA-C - Last Filed: 06/06/25 17:09> FOR[facility]LY [facility] Family History Family History: Family History Father Diabetes mellitus Grandparent Diabetes mellitus <JOANNA Braun Last Filed: 06/06/25 17:09> Social History Social History: Social History Smoking status: Current every day smoker Tobacco type: e-cigarettes/vaping Alcohol intake: current Substance use: current Substance use type: marijuana Last use: 06/05/2025 Lack of Transportation: No Lack of Food: Sometimes True Current Housing: I Have Housing Concerned About Future Housing: No Difficulty Paying Gas/Electric Bills: YES Difficulty Paying for Meds: No Currently Unemployed: No Education: High School Diploma/GED Difficulty w/ Childcare or Family Care: No Spiritual care concerns: No <JOANNA Braun Last Filed: 06/06/25 17:09> Exam Narrative: GENERAL: Mildly uncomfortable appearing, well-nourished, non-toxic, in no acute distress. HEAD: Normocephalic, atraumatic. RESPIRATORY: Airway patent, respirations nonlabored. Clear to auscultation bilaterally, no rales, rhonchi, wheezing. CARDIOVASCULAR: Regular rate and rhythm without murmurs, rubs, or gallops. ABDOMINAL: Soft, tenderness palpation left mid to lower abdomen, left flank region, nondistended. Normoactive BS. MUSCULOSKELETAL: Moves all extremities. No gross deformities. SKIN: Warm, dry, normal color. NEURO: A&O X3. Speech clear. Cranial nerves II-XII grossly intact. Steady gait. No ataxic movements. PSYCHIATRIC: Appropriate mood and affect. Normal interaction. <Jocelyn Encinas PA-C - Last Filed: 06/06/25 17:09> Course Course Emergency Course: PACO 0430: Signed out to me pending imaging. Patient has severe hydronephrosis on the left despite stent placement. He has fat stranding around the kidney and ureter. Urine is indicative infection and he has dysuria and urinary urgency. His vital signs are stable, he does not have a white count needed he does not appear septic. Case was discussed with Dr. Craig. Patient will be admitted for urologic evaluation. <Harpreet Vargas MD - Last Filed: 06/06/25 04:34> Vital Signs Vital signs: Vital Signs Pulse Rate 97 06/05/25 21:14 Respiratory Rate 20 06/05/25 21:14 Blood Pressure 148/77 H 06/05/25 21:14 Pulse Oximetry 97 06/05/25 21:14 Oxygen Delivery Room Air 06/05/25 21:14 Temperature 97.7 F 06/06/25 15:02 Pulse Rate 59 L 06/06/25 16:15 Respiratory Rate 14 06/06/25 16:15 Blood Pressure 122/81 06/06/25 16:15 Pulse Oximetry 99 06/06/25 16:15 Oxygen Delivery Room Air 06/06/25 16:15 Oxygen Flow Rate 6 06/06/25 15:15 <Jocelyn Encinas PA-C - Last Filed: 06/06/25 17:09> Vital Signs Pulse Rate 97 06/05/25 21:14 Respiratory Rate 20 06/05/25 21:14 Blood Pressure 148/77 H 06/05/25 21:14 Pulse Oximetry 97 06/05/25 21:14 Oxygen Delivery Room Air 06/05/25 21:14 Temperature 97.7 F 06/06/25 15:02 Pulse Rate 59 L 06/06/25 16:15 Respiratory Rate 14 06/06/25 16:15 Blood Pressure 122/81 06/06/25 16:15 Pulse Oximetry 99 06/06/25 16:15 Oxygen Delivery Room Air 06/06/25 16:15 Oxygen Flow Rate 6 06/06/25 15:15 <Harpreet Vargas MD - Last Filed: 06/06/25 04:34> MDM - Male Genitourinary MDM Narrative Medical decision making narrative: Patient presented to ED with left-sided abdominal and flank pain, history of large kidney stones. Currently has ureteral stent in place, reports he is unable to have this removed due to lack of insurance. Vital signs are stable upon arrival. Patient in no gross distress. Laboratory studies fairly unremarkable. No leukocytosis. Stable kidney function. UA with 2+ leuk esterase, greater than 100 RBC, 51-100 WBC. Sent for culture. Will Tx. Given dose of levaquin in the ED. He has an anaphylactic allergy to PCN. CT scan of abdomen/pelvis was obtained. Care signed out to Dr. Vargas at shift change pending STAT RAD imaging results. <Jocelyn Encinas PA-C - Last Filed: 06/06/25 17:09> Medical Records Attestation: I reviewed the patient's medical records. <JOANNA Braun Last Filed: 06/06/25 17:09> Lab Data Attestation: I reviewed the patient's lab results. <JOANNA Braun Last Filed: 06/06/25 17:09> Result diagrams: 06/05/25 23:53 06/05/25 23:53 <Jocelyn Encinas PA-C - Last Filed: 06/06/25 17:09> Labs: Lab Results 06/05/25 06/05/25 Range/Units 22:18 23:53 WBC 8.7 (4.5-10.0) K/mm3 RBC 5.18 (4.6-6.20) M/mm3 Hgb 14.9 (14.0-18.0) g/dL Hct 43.4 (42.0-52.0) % MCV 83.8 (80-100) fl MCH 28.8 (26-34) pg MCHC 34.3 (32-36) g/dl RDW 12.2 (11.5-14.5) % Plt Count 350 (150-375) k/mm3 MPV 8.7 (7.4-10.4) fl Immature Gran % (Auto) 1.2 H (0-0.5) % Neut % (Auto) 49.6 (45.5-73.1) % Lymph % (Auto) 37.5 (18.3-44.2) % [place] % (Auto) 7.7 (2.6-8.5) % Eos % (Auto) 3.3 (0-4.4) % Baso % (Auto) 0.7 (0.2-1.2) % Lymph # (Auto) 3.26 H (0.9-3.2) K/mm3 [place] # (Auto) 0.7 H (0.1-0.6) K/mm3 Eos # (Auto) 0.3 (0-0.3) K/mm3 Baso # (Auto) 0.1 (0.0-0.1) K/mm3 Abs Immat Gran (auto) 0.10 H (0.00-0.031) K/mm3 Absolute Neuts (auto) 4.3 (1.3-6.7) K/mm3 Absolute Nucleated RBC 0.000 (0.0-0.012) K/mm3 Nucleated RBC % 0.0 (0.0-0.2) % Sodium 134 L (137-145) mmol/L Potassium 3.4 (3.4-5.0) mmol/L Chloride 102 (98-107) mmol/L Carbon Dioxide 24 (22-30) mmol/L Anion Gap 8 (4-12) mmol/L BUN 12 (9-20) mg/dL Creatinine 1.05 (0.7-1.3) mg/dL Estim Creat Clear Calc Not Reportable Estimated GFR > 60 (59 - ) Glucose 108 (65-110) mg/dL Calcium 9.2 (8.4-10.2) mg/dL Urine Color Dark stefan (Yellow) Urine Appearance Turbid H (Clear) Urine pH 6.0 (5.0-9.0) Ur Specific [place] 1.027 (1.001-1.035) Urine Protein 3+ H (Negative) mg/dL Urine Glucose (UA) Negative (Negative) mg/dL Urine Ketones Trace H (Negative) mg/dL Ur Blood (Man) 3+ H (Negative) Urine Nitrate Negative (Negative) Urine Bilirubin 1+ H (Negative) Urine Urobilinogen 1.0 (<2.0) mg/dL Add Ur Microanalysis Reviewed Leukocyte Esterase Rfl 2+ H (Negative) ABNER/UL Urine RBC >100 H (0-2) /hpf Urine WBC 51-100 H (0-3) /hpf Ur Squamous Epith Cells Few (Few) /hpf Calcium Oxalate Crystal Present (None) /hpf Urine Bacteria None seen /hpf Urine Casts 3-5 <Jocelyn Encinas PA-C - Last Filed: 06/06/25 17:09> Lab Results 06/05/25 06/05/25 Range/Units 22:18 23:53 WBC 8.7 (4.5-10.0) K/mm3 RBC 5.18 (4.6-6.20) M/mm3 Hgb 14.9 (14.0-18.0) g/dL Hct 43.4 (42.0-52.0) % MCV 83.8 (80-100) fl MCH 28.8 (26-34) pg MCHC 34.3 (32-36) g/dl RDW 12.2 (11.5-14.5) % Plt Count 350 (150-375) k/mm3 MPV 8.7 (7.4-10.4) fl Immature Gran % (Auto) 1.2 H (0-0.5) % Neut % (Auto) 49.6 (45.5-73.1) % Lymph % (Auto) 37.5 (18.3-44.2) % [place]y % (Auto) 7.7 (2.6-8.5) % Eos % (Auto) 3.3 (0-4.4) % Baso % (Auto) 0.7 (0.2-1.2) % Lymph # (Auto) 3.26 H (0.9-3.2) K/mm3 [place] # (Auto) 0.7 H (0.1-0.6) K/mm3 Eos # (Auto) 0.3 (0-0.3) K/mm3 Baso # (Auto) 0.1 (0.0-0.1) K/mm3 Abs Immat Gran (auto) 0.10 H (0.00-0.031) K/mm3 Absolute Neuts (auto) 4.3 (1.3-6.7) K/mm3 Absolute Nucleated RBC 0.000 (0.0-0.012) K/mm3 Nucleated RBC % 0.0 (0.0-0.2) % Sodium 134 L (137-145) mmol/L Potassium 3.4 (3.4-5.0) mmol/L Chloride 102 (98-107) mmol/L Carbon Dioxide 24 (22-30) mmol/L Anion Gap 8 (4-12) mmol/L BUN 12 (9-20) mg/dL Creatinine 1.05 (0.7-1.3) mg/dL Estim Creat Clear Calc Not Reportable Estimated GFR > 60 (59 - ) Glucose 108 (65-110) mg/dL Calcium 9.2 (8.4-10.2) mg/dL Urine Color Dark stefan (Yellow) Urine Appearance Turbid H (Clear) Urine pH 6.0 (5.0-9.0) Ur Specific [place] 1.027 (1.001-1.035) Urine Protein 3+ H (Negative) mg/dL Urine Glucose (UA) Negative (Negative) mg/dL Urine Ketones Trace H (Negative) mg/dL Ur Blood (Man) 3+ H (Negative) Urine Nitrate Negative (Negative) Urine Bilirubin 1+ H (Negative) Urine Urobilinogen 1.0 (<2.0) mg/dL Add Ur Microanalysis Reviewed Leukocyte Esterase Rfl 2+ H (Negative) ABNER/UL Urine RBC >100 H (0-2) /hpf Urine WBC 51-100 H (0-3) /hpf Ur Squamous Epith Cells Few (Few) /hpf Calcium Oxalate Crystal Present (None) /hpf Urine Bacteria None seen /hpf Urine Casts 3-5 <Harpreet Vargas MD - Last Filed: 06/06/25 04:34> Imaging Data Attestation: I personally reviewed and interpreted this imaging study as follows: <Jocelyn Encinas PA-C - Last Filed: 06/06/25 17:09> Discharge Plan Discharge Clinical Impression: Ureteral stent present, Left flank pain, Hydronephrosis of left kidney UTI (urinary tract infection) Qualifiers: Urinary tract infection type: acute cystitis Hematuria presence: with hematuria Qualified Code(s): N30.01 - Acute cystitis with hematuria <JOANNA Braun Last Filed: 06/06/25 17:09> Patient Disposition: Still a Patient <JOANNA Braun Last Filed: 06/06/25 17:09> Condition: Stable <Jocelyn Encinas PA-C - Last Filed: 06/06/25 17:09>
[2025-06-06] MEDS: SODIUM CHLORIDE 0.9% IV 1,000 ML 999 ML IV CONT (02:07)
[2025-06-06] MEDS: levoFLOXacin 750 MG/D5W 150 ML 750 MG/150 ML BAG 100 MG IVPB (02:08)
[2025-06-06] MEDS: HYDROmorphone HCL INJ (*CRX) 2 MG/ML VIAL 0.5 MG IV PUSH (04:35)
--- NOTE | 2025-06-06 05:52 | PM.IMHP ---
H&P: HPI History of Present Illness Date/Time: 06/06/25 05:52 Chief Complaint: Left lower abdominal pain Narrative: 29-year-old male presents to [facility] ER on 06/06/2025 with the complaint of left flank and left lower abdominal pain. Patient has a history of kidney stones. He reports 5 months prior he was diagnosed with a proximal left 26 mm kidney stone and had a stent placed at [facility]. Afterwards he could not follow-up reports they refuse to remove the stent due to lack of insurance. 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 About 5 weeks prior to admission he was helping someone after a refrigerator fell on them. Since then he had developed worsening left-sided pain along with burning on urination and blood and clots in his urine. Denies any fever. Denies vomiting, diarrhea, chest pain, shortness of breath. Preliminary read on abdomen pelvis CT demonstrating severe hydronephrosis left-sided with fat stranding around the kidney and ureter. Urinalysis grossly abnormal with 100 RBC, 51-100 wbc's. Patient given Levaquin. Urine cultures pending. Urology consultation initiated from ER. Urology advises admission. NPO. Review of Systems Review of Systems: All systems reviewed & are unremarkable except as noted in HPI and below (Subjective/HPI) Meds Home Medications and Allergies Allergies Allergy/AdvReac Type Severity Reaction Status Date / Time Penicillins Allergy Unknown Anaphylaxis Verified 06/05/25 23:54 Vital Signs Vital Signs - 24 hr 06/05/25 21:14 06/05/25 23:07 06/06/25 00:36 Temperature 97.9 F Pulse Rate 97 72 Respiratory Rate 20 17 Blood Pressure 148/77 H 156/108 H 142/79 H Pulse Oximetry 97 97 99 Oxygen Delivery Room Air 06/06/25 01:31 06/06/25 02:07 06/06/25 03:30 Temperature Pulse Rate 74 70 65 Respiratory Rate 16 13 17 Blood Pressure 125/78 111/69 Pulse Oximetry 95 97 94 Oxygen Delivery 06/06/25 03:51 06/06/25 04:00 06/06/25 04:31 Temperature Pulse Rate 77 73 Respiratory Rate 16 15 Blood Pressure 121/69 120/82 118/69 Pulse Oximetry 95 97 97 Oxygen Delivery Exam Const: General: comfortable and no acute distress Other: A&O x3 HENMT: Mouth: Yes moist mucous membranes Eyes: Pupils: Equal, round and reactive pupils present Neck: Neck: supple Resp: Effort & Inspection: normal respiratory effort Auscultation: clear to auscultation bilaterally Cardio: Rate: regular rate Rhythm: regular rhythm GI: Inspection: non-distended GI Palp: Yes Soft to palpation and Yes Tenderness to palpation present (GI) (Slight tenderness to deep palpation of left lower quadrant) : Other: Slight tenderness to deep palpation of suprapubic region Neuro: Motor exam (neuro): 5/5 motor strength present throughout Extrem: General: no edema H&P: Results Labs Labs: Short CBC 06/05/25 Range/Units 23:53 WBC 8.7 (4.5-10.0) K/mm3 Hgb 14.9 (14.0-18.0) g/dL Hct 43.4 (42.0-52.0) % Plt Count 350 (150-375) k/mm3 BMP 06/05/25 23:53 Sodium 134 L Potassium 3.4 Chloride 102 Carbon Dioxide 24 BUN 12 Creatinine 1.05 Glucose 108 Calcium 9.2 Urine 06/05/25 Range/Units 22:18 Urine Color Dark stefan (Yellow) Urine Appearance Turbid H (Clear) Urine pH 6.0 (5.0-9.0) Ur Specific [place] 1.027 (1.001-1.035) Urine Protein 3+ H (Negative) mg/dL Urine Glucose (UA) Negative (Negative) mg/dL Assessment and Plan Assessment and plan (1) Hydronephrosis of left kidney: Code(s): N13.30 - Unspecified hydronephrosis Status: Acute (2) Ureteral stent present: Code(s): Z96.0 - Presence of urogenital implants Status: Acute (3) UTI (urinary tract infection): Qualifiers: Hematuria presence: with hematuria Urinary tract infection type: acute cystitis Qualified Code(s): N30.01 - Acute cystitis with hematuria Code(s): N39.0 - Urinary tract infection, site not specified Status: Acute Plan 29-year-old male presents to [facility] ER on 06/06/2025 with the complaint of left flank and left lower abdominal pain. Patient has a history of kidney stones. He reports 5 months prior he was diagnosed with a proximal left 26 mm kidney stone and had a stent placed at [facility]. Afterwards he could not follow-up reports they refuse to remove the stent due to lack of insurance. 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 About 5 weeks prior to admission he was helping someone after a refrigerator fell on them. Since then he had developed worsening left-sided pain along with burning on urination and blood and clots in his urine. Denies any fever. Denies vomiting, diarrhea, chest pain, shortness of breath. Preliminary read on abdomen pelvis CT demonstrating severe hydronephrosis left-sided with fat stranding around the kidney and ureter. Urinalysis grossly abnormal with 100 RBC, 51-100 wbc's. Patient given Levaquin. Urine cultures pending. Urology consultation initiated from ER. Urology advises admission. NPO. ----- NPO. Continue levofloxacin 750 mg IV Q 24 hours. Urology consultation. Patient wishes to be full code. SCDs. Care coordination consultation for insurance issues. Hospitalist [facility] Advance Care Plan I have confirmed that the patient's Advanced Care Plan is present, code status is documented, or surrogate decision maker is listed in patient medical record.: Yes Medication Reconciliation I have utilized all available resources to obtain, update and review the patients current medications (includes all prescriptions, OTC, herbals, cannabis, and nutritional supplements).: Yes
--- NOTE | 2025-06-06 06:01 | ADMGEN ---
This patient, Frank Mendoza, was admitted to 3 [facility] Surg Room 301-01. Patient/family oriented to hospital policies and general routines including ID bracelet, bed and alarms, visiting hours, pain management, procedures, bathroom and other care routines, personal items, smoking policy, room service/diet, and visiting hours. Information on how to activate the Rapid Response Team has been discussed. Patient/Family are encouraged to report perceived risks to care and to ask questions if they do not understand what they are told or what they should do.
--- NOTE | 2025-06-06 06:19 | WPDHPUPDATE1 ---
History and Physical Update Update Date/Time: 06/06/25 06:19 History and Physical has been reviewed, including an updated exam of the patient. There are NO changes in the patient's condition. Risks, benefits, and alternatives have been discussed and questions answered. Patient agrees to proceed with procedure.
--- NOTE | 2025-06-06 06:55 | WPDURCON ---
Assessment and Plan Assessment and plan (1) Hydronephrosis of left kidney: Code(s): N13.30 - Unspecified hydronephrosis Status: Acute (2) Ureteral stent present: Code(s): Z96.0 - Presence of urogenital implants Status: Acute Assessment and Plan: Nonobstructing 2 cm left renal stone with indwelling stent. Significant flank pain and irritable voiding likely from stent irritation (has been present since the time the stent was placed). Patient appears to currently have a urinary tract infection which will preclude definitive stone intervention. After discussion of options he has elected to have a ureteral stent removed but the understanding that it may need to be replaced if he develops ureteral obstruction from his renal calculus. Arrangements to be made for definitive stone management at [facility]. Urology Consult Note HPI Date Seen: 06/06/25 Requesting Physician: Mercedes Gonzalez MD Primary Care Provider: UNKNOWN,DOCTOR Consult Narrative Narrative: Frank Mendoza is a 29 year old male who is previously unknown to our practice but has a history of recurrent urolithiasis. Two months ago he had a left ureteral stent placed for a 2 cm left renal pelvic stone. With stent placement the stone was pushed back into his left lower pole calyx. Since that time he has had a miserable stent irritation and presents to ER ER. He has had no fevers chills or gross hematuria. CT imaging demonstrates left hydronephrosis with a stent in position and a 2 cm stone in the lower pole calyx. Review of Systems Cardiovascular: Cardiovascular: Denies chest pain, Denies lightheadedness, Denies palpitations and Denies dyspnea Respiratory: Respiratory: Denies dyspnea Gastrointestinal: Gastrointestinal: Denies diarrhea, Denies nausea and Denies vomiting Genitourinary: Genitourinary: Denies hematuria and Denies dysuria Endocrine: Endocrine: Denies palpitations [facility] Family History Family History (Updated 06/06/25 @ 06:14 by PINO Martinez) Father Diabetes mellitus Grandparent Diabetes mellitus Social History Social History Smoking status: Current every day smoker Tobacco type: e-cigarettes/vaping Alcohol intake: current Substance use: current Substance use type: marijuana Last use: 06/05/2025 Lack of Transportation: No Lack of Food: Sometimes True Current Housing: I Have Housing Concerned About Future Housing: No Difficulty Paying Gas/Electric Bills: YES Difficulty Paying for Meds: No Currently Unemployed: No Education: High School Diploma/GED Difficulty w/ Childcare or Family Care: No Spiritual care concerns: No Meds Home Medications and Allergies Home Medications ?Medication ?Instructions ?Recorded ?Confirmed ?Type No Home Medications 06/06/25 06/06/25 History Allergies Allergy/AdvReac Type Severity Reaction Status Date / Time Penicillins Allergy Unknown Anaphylaxis Verified 06/05/25 23:54 Vital Signs Vital Signs - 24 hr 06/05/25 21:14 06/05/25 23:07 06/06/25 00:36 Temperature 97.9 F Pulse Rate 97 72 Respiratory Rate 20 17 Blood Pressure 148/77 H 156/108 H 142/79 H Pulse Oximetry 97 97 99 Oxygen Delivery Room Air 06/06/25 01:31 06/06/25 02:07 06/06/25 03:30 Temperature Pulse Rate 74 70 65 Respiratory Rate 16 13 17 Blood Pressure 125/78 111/69 Pulse Oximetry 95 97 94 Oxygen Delivery 06/06/25 03:51 06/06/25 04:00 06/06/25 04:31 Temperature Pulse Rate 77 73 Respiratory Rate 16 15 Blood Pressure 121/69 120/82 118/69 Pulse Oximetry 95 97 97 Oxygen Delivery 06/06/25 06:00 Temperature 97.1 F L Pulse Rate 71 Respiratory Rate 16 Blood Pressure 128/67 Pulse Oximetry 97 Oxygen Delivery Exam Const: General: no acute distress Resp: Effort & Inspection: normal respiratory effort GI: Inspection: non-distended GI Palp: No abdominal tenderness and No Guarding due to palpation present (GI) Auscultation: normal bowel sounds Results Labs 06/05/25 23:53 06/05/25 23:53 Labs: Short CBC 06/05/25 Range/Units 23:53 WBC 8.7 (4.5-10.0) K/mm3 Hgb 14.9 (14.0-18.0) g/dL Hct 43.4 (42.0-52.0) % Plt Count 350 (150-375) k/mm3 BMP 06/05/25 23:53 Sodium 134 L Potassium 3.4 Chloride 102 Carbon Dioxide 24 BUN 12 Creatinine 1.05 Glucose 108 Calcium 9.2 Urine 06/05/25 Range/Units 22:18 Urine Color Dark stefan (Yellow) Urine Appearance Turbid H (Clear) Urine pH 6.0 (5.0-9.0) Ur Specific [place] 1.027 (1.001-1.035) Urine Protein 3+ H (Negative) mg/dL Urine Glucose (UA) Negative (Negative) mg/dL
--- OUTSIDE RECORDS SUMMARY | 2025-06-06 07:43 | XMS_ITS | Clinical Summary ---
Author Organization [facility] Address [address] [place] [address] Care Team Providers Care Photographic Artist Name Role Phone No, Physician Primary Care [...] Type Department Care Team Description 05/27/2025 Telephone [facility] Advanced Medicine ([facility]) - [facility] Urology [address] 11th [place] [address] [place] [address] Garima Le B.A. 04/15/2025 Telephone [facility] Urology [address] [place] [address] 11th [place] [address] [place] [address] Garima Le B.A. 04/10/2025 Telephone [facility] Urology [address] [place] [address] [address]th [place] [address] Garima Le B.A. 04/07/2025 Telephone [facility] Urology [address] [place] [address] 11th [place] [address] Garima Le B.A. 03/24/2025 Telephone [facility] Urology [address] [place] [address] 11th [place] [address] Garima Le, B.AEmily 03/21/2025 11:30 PM CDT - 03/22/2025 12:55 AM CDT Surgery [facility] Operating Room [address] [place] [address] Rachel Bryant MD CYSTOSCOPY, LEFT URETERAL STENT PLACEMENT, LEFT RETROGRADE PYELOGRAM 03/21/2025 11:09 PM CDT Anesthesia Event [facility] Operating Room [address] [place] [address] Alek Arana MD Najrabi, Khatera, CRNA 03/21/2025 9:48 AM CDT - 03/23/2025 12:51 PM CDT Hospital [address] [address] North Howard MD Metcalf, Meredith, MD Ureterolithiasis [...] (#1) 2025 Medical Devices Implanted Type Area Marketing Development Manager Device Identifier Shelf Expiration Date Model / Serial / Lot [employer] Universa 6fr 28cm Firm Positioner Monofilament Tether Stent [id number] - [id number] Implanted:Qty: 1 on 03/21/2025 by Rachel Bryant MD at [facility] Stent Left: Ureter [email or web address] 12/11/2027 [id number] / / [id number] Procedures Procedure Name Priority Date/Time Associated Diagnosis Comments FL FLUOROSCOPY < 1 HOUR IP Routine 03/29/2025 7:10 AM CDT US SCROTUM Pending Discharge 03/22/2025 12:16 PM CDT EGFR Timed 03/22/2025 6:54 AM CDT BASIC METABOLIC PANEL Timed 03/22/2025 6:54 AM CDT CBC WITHOUT DIFFERENTIAL Routine 03/22/2025 6:54 AM CDT N. GONORRHOEAE/C. TRACHOMATIS AMPLIFICATION STAT 03/22/2025 2:22 AM CDT NC AN PROCEDURE PLACEHOLDER Routine 03/21/2025 11:34 PM CDT NC AN ELECTIVE SUPRAGLOTTIC AIRWAY Routine 03/21/2025 11:34 [...] Electronically signed by: Young Li M.D. us Rahcel Bryant MD IMG US PROCEDURES Final Resu [...] ORDERABLES Final R esult Performing Organization Address [facility] Co de Phone Number [facility] [place] [address] * (ABNORMAL) CBC without differential (03/22/2025 6:54 AM CDT) WBC 7.80 3.80 - 9.90 K/cumm Hgb 13.5 13.0 - 17.5 g/dL [facility] Hct 39.7 38.9 - 50.3 % [facility] Plt 238 150 - 400 K/cumm [facility] MPV 8.9(L) 9.1 - 12.3 fL [facility] RBC 4.77 4.30 - 5.80 M/cumm [facility] MCV 83.2 81.3 - 96.4 fL [facility] MCH 28.3 27.1 - 33.3 pg [facility] MCHC 34.0 32.3 - 35.7 g/dL [facility] RDW CV 12.5 11.1 - 14.9 % [facility] RDW SD 37.8 35.7 - 48.1 fL [facility] NRBC abs 0.00 0.00 - 0.01 K/cumm [facility] Blood 03/22/2025 6:54 AM CDT 03/22/2025 7:16 AM CDT Rachel Bryant MD LAB BLOOD ORDERABLES Final R esult Performing Organization Address City/[facility]/ZIP Co de Phone Number [facility] Department [place] [address] * (ABNORMAL) Basic metabolic panel (03/22/2025 6:54 AM CDT) Pathologist [facility] Sodium 142 135 - 145 mmol/L Potassium, pl 3.9 3.3 - 4.9 mmol/L [facility] Comment:Reviewed Chloride 108 97 - 110 mmol/L [facility] CO2 27 22 - 32 mmol/L [facility] Anion gap 7 2 - 15 mmol/L [facility] BUN 11 6 - 25 mg/dL [facility] Creatinine 1.28 0.80 - 1.30 mg/dL [facility] Glucose 106 70 - 199 mg/dL [facility] Comment: Interpretive Data Fasting glucose [...] 2022. Calcium 8.4(L) 8.5 - 10.3 mg/dL [facility] Blood 03/22/2025 6:54 AM CDT 03/22/2025 7:16 AM CDT Rachel Bryant MD LAB BLOOD ORDERABLES Final R esult [facility] Department [place] [address] * N. gonorrhoeae/C. trachomatis Amplification Urine (03/22/2025 2:22 AM CDT) C. trachomatis Not Detected Not Detected [facility] N. gonorrhoeae Not Detected Not Detected [facility] Comment: Interpretive Data This assay detects Chlamydia trachomatis and Neisseria gonorrhoeae by nucleic acid amplification testing (NAAT). This assay has been cleared by the [place] Food and Drug administration. The performance characteristics of this test have been verified by the [facility] Molecular Infectious Disease laboratory. The performance characteristics of this test have not been evaluated in individuals less than 14 years of age. Current Interpretive Data last revised 2023. Urine (None) 03/22/2025 2:22 AM CDT 03/22/2025 5:38 AM CDT Rachel Bryant MD LAB MICROBIOLOGY - GENERAL O RDERABLES Final Result Performing Organization Address City/[facility]/ZIP Co de Phone Number [facility] Department [place] [address] [facility] * NC AN ELECTIVE SUPRAGLOTTIC AIRWAY, NC AN PROCEDURE PLACEHOLDER (03/21/2025 11:34 PM CDT) [...] ORDERABLES Patricia l Result Performing Organization Address City/[facility]/ZIP Co de Phone Number [facility] [place] [address] * (ABNORMAL) Protime-INR (03/21/2025 12:16 PM CDT) PT 15.5(H) 9.7 - 13.0 sec INR 1.42(H) 0.90 - 1.20 [facility] Comment: Interpretive data Oral anticoagulant therapeutic ranges: Venous thromboembolism prophylaxis or treatment: 2.0-3.0 CARDIOLOGY Standard range: 2.0-3.0 High-intensity range: 2.5-3.5 Refer to indication-specific guidelines for appropriate target ranges for prosthetic heart valve replacement. Current interpretive data was last revised on 2019. Blood 03/21/2025 12:1 6 PM CDT 03/21/2025 12:30 PM CDT North Howard MD LAB BLOOD ORDERABLES Patricia l Result Performing Organization Address City/[facility]/[place] [address] * Type and screen (03/21/2025 12:16 PM CDT) Pathologist [facility] Vanesa, indirect Negative ABO Rh A Negative [facility] Blood 03/21/2025 12:1 6 PM CDT 03/21/2025 12:30 PM CDT Narrative [facility] - 03/21/2025 1:18 PM CDT Has the patient had Daratumumab or Isatuximab in the past 6 months?->Unknown North Howard MD LAB BLOOD BANK TEST ORDER [place] [address] * CT Body Outside Consult (03/21/2025 11:01 [...] images may or may not represent the [employer] source data set and thus may contain changes that may lower the accuracy of this second-opinion interpretation. Electronically signed by: Johanna Morales 03/21/2025 11:17 AM CDT EXAMINATION: RADIOLOGY CONSULTATION ON OUTSIDE IMAGING STUDY STUDY INITIALLY PERFORMED: [facility] 03/21/2025 TYPE OF STUDY: Multiple CT [...] ON OUTSIDE IMAGING STUDY STUDY INITIALLY PERFORMED: [facility] 03/21/2025 TYPE OF STUDY: Multiple CT [...] images may or may not represent the [employer] source data set and thus may contain [...] Fuentes MD LAB BLOOD ORDERABLES Final Result [facility] Department [place] [address] * (ABNORMAL) Differential, auto (03/21/2025 10:18 AM CDT) Neutrophil abs 9.99(H) 1.50 - 6.50 K/cumm Imm gran abs 0.09 0.00 - 0.10 K/cumm [facility] Lymphocyte abs 1.30 0.80 - 3.30 K/cumm [facility] Monocyte abs 1.05(H) 0.20 - 0.80 K/cumm [facility] Eosinophil abs 0.02 0.00 - 0.50 K/cumm [facility] Basophil abs 0.05 0.00 - 0.10 K/cumm [facility] Neutrophil pct 79.9 % [facility] Comment: Interpretive Data Percent cell count reference ranges are not reported, since discordance with absolute values may lead to misinterpretation of CBC data. Current Interpretive Data was last revised on 2018. Imm gran pct 0.7 % [facility] Comment: Interpretive Data Percent cell count reference ranges are not reported, since discordance with absolute values may lead to misinterpretation of CBC data. Current Interpretive Data was last revised on 2018. Lymphocyte pct 10.4 % [facility] Comment: Interpretive Data Percent cell count reference ranges are not reported, since discordance with absolute values may lead to misinterpretation of CBC data. Current Interpretive Data was last revised on 2018. Monocyte pct 8.4 % [facility] Comment: Interpretive Data Percent cell count reference ranges are not reported, since discordance with absolute values may lead to misinterpretation of CBC data. Current Interpretive Data was last revised on 2018. Eosinophil pct 0.2 % [facility] Comment: Interpretive Data Percent cell count reference ranges are not reported, since discordance with absolute values may lead to misinterpretation of CBC data. Current Interpretive Data was last revised on 2018. Basophil pct 0.4 % [facility] Comment: Interpretive Data Percent cell count reference ranges are not reported, since discordance with absolute values may lead to misinterpretation of CBC data. Current Interpretive Data was last revised on 2018. Blood 03/21/2025 10:1 8 AM CDT 03/21/2025 10:33 AM CDT Tammy Fuentes MD LAB BLOOD ORDERABLES Final Result [facility] Department [place] [address] * (ABNORMAL) Urinalysis reflex to microscopic (03/21/2025 10:18 AM CDT) Color, ur Yellow Yellow Clarity, ur Clear Clear [facility] Specific gravity, ur 1.031(H) 1.003 - 1.030 [facility] pH, urine 7.5 [facility] Comment: Interpretive Data U rine pH is affected by diet, medications, systemic acid-base disturbances, and renal tubular function. pH may affect urinary stone formation. For example, urine pH below 6.0 may help reduce the tendency for calcium phosphate stones and pH greater than 6.0 may reduce the tendency for uric acid stone formation. Source: [facility] [place] Current Interpretive Data was last revised on 2017 Protein, ur ql Trace Negative [facility] Glucose, ur ql Negative Negative [facility] Ketones, ur Negative Negative [facility] Bilirubin, ur Negative Negative [facility] Blood, ur Negative Negative [facility] Urobilinogen, ur <2.0 <2.0 mg/dL [facility] Nitrite, ur Negative Negative [facility] Leukocyte esterase, ur Negative Negative [facility] UA reflex comment Reflex conditions for microscopic UA not met. [facility] Urine 03/21/2025 10:1 8 AM CDT 03/21/2025 10:24 AM CDT North Howard MD LAB URINE ORDERABLES Patricia brown Result [facility] Department [place] [address] * (ABNORMAL) CBC with auto differential (03/21/2025 10:18 AM CDT) [facility] WBC 12.50(H) 3.80 - 9.90 K/cumm Hgb 15.5 13.0 - 17.5 g/dL [facility] Hct 44.0 38.9 - 50.3 % [facility] Plt 322 150 - 400 K/cumm [facility] MPV 9.1 9.1 - 12.3 fL [facility] RBC 5.37 4.30 - 5.80 M/cumm [facility] MCV 81.9 81.3 - 96.4 fL [facility] MCH 28.9 27.1 - 33.3 pg [facility] MCHC 35.2 32.3 - 35.7 g/dL [facility] RDW CV 12.9 11.1 - 14.9 % [facility] RDW SD 37.5 35.7 - 48.1 fL [facility] NRBC abs 0.00 0.00 - 0.01 K/cumm [facility] Blood Venous blood specimen / Unknown 03/21/2025 10:18 AM CDT 03/21/2025 10:33 AM CDT North Howard MD LAB BLOOD ORDERABLES Patricia l Result [facility] Department [place] [address] * (ABNORMAL) Lipase (03/21/2025 10:18 AM CDT) [facility] Lipase 187(H) 10 - 99 Units/L Blood Venous blood specimen / Unknown 03/21/2025 10:18 AM CDT 03/21/2025 10:33 AM CDT North Howard MD LAB BLOOD ORDERABLES Patricia l Result [facility] Department [place] [address] * (ABNORMAL) Comprehensive metabolic panel (03/21/2025 10:18 AM CDT) Pathologist [facility] Sodium 141 135 - 145 mmol/L Potassium, pl See Comment 3.3 - 4.9 mmol/L [facility] Comment:Credited; Hemolyzed Specimen Chloride 106 97 - 110 mmol/L [facility] CO2 25 22 - 32 mmol/L [facility] Anion gap 10 2 - 15 mmol/L [facility] BUN 14 6 - 25 mg/dL [facility] Creatinine 1.34(H) 0.80 - 1.30 mg/dL [facility] Glucose 126 70 - 199 mg/dL [facility] Comment: Interpretive Data Fasting glucose [...] 2022. Calcium 9.3 8.5 - 10.3 mg/dL [facility] Bilirubin, total 0.5 0.1 - 1.2 mg/dL [facility] Protein, pl 7.7 6.5 - 8.5 g/dL [facility] Albumin 4.4 3.5 - 5.0 g/dL [facility] Alk phos 98 40 - 130 Units/L [facility] Comment:Hemolyzed; result ma y be falsely decreased ALT See Comment 7 - 55 Units/L [facility] Comment:Credited; Hemolyzed Specimen AST See Comment 10 - 50 Units/L [facility] Comment:Credited; Hemolyzed Specimen Blood Venous blood specimen / Unknown 03/21/2025 10:18 AM CDT 03/21/2025 10:33 AM CDT North Howard MD LAB BLOOD ORDERABLES Patricia kevin Result [facility] [place] [address] from Last 3 Months Advance Directives For more information, please contact: [phone] * Full Code (Latest Code Status on File) Date Activated Date Inactivated Comments 03/21/2025 1:54 PM 03/23/2025 4:56 PM Care Teams Photographic Artist Relationship Specialty Start Date End Date No, Physician PCP - General 03/21/25
--- OUTSIDE RECORDS SUMMARY | 2025-06-06 07:43 | XMS_ITS | Referral Summary ---
Author Organization [facility] Address [address] [place] [address] Care Team Providers Care Band Tier Name Role Phone No, Physician Primary Care Provider Encounters Date Type Department Care Team Description 05/27/2025 Telephone [facility] - [facility] Urology [facility] Advanced [facility] 11th [place] [address] Garima Le, BEthel 04/15/2025 Telephone [facility] ([facility]) - [facility] Urology [address] [facility] 11th [place] [address] Garima Le, BEthel 04/10/2025 Telephone [facility] ([facility] - [facility] Urology [facility] Advanced Medicine 11th [place] [address] Garima Le, B.AEmily 04/07/2025 Telephone [facility] ([facility]) - [facility] Urology [address] [facility] Advanced Medicine 11th [place] [address] Garima Le, BEthel 03/24/2025 Telephone [facility] ([facility]) - [facility] Urology [address] [facility] Advanced Medicine 11th [place] [address] Garima Le, BEthel 03/21/2025 9:48 AM CDT - 03/23/2025 12:51 PM CDT Hospital Encounter [facility] [address] [place] [address] [place] MD Metcalf, Meredith, MD Ureterolithiasis (Primary Dx); Ureteral stone with hydronephrosis Discharge Disposition: Discharge to home or self care 03/21/2025 11:09 PM CDT Anesthesia Event [facility] Operating Room [address] [place] [address] Alek Arana MD Najrabi, Khatera, CRNA 03/21/2025 11:30 PM CDT - 03/22/2025 12:55 AM CDT Surgery [facility] Operating Room [address] [place] [id number] Rachel Bryant MD CYSTOSCOPY, LEFT URETERAL STENT [...] on file Medical Devices Implanted Type Area [employer] Internet Sales Manager Device Identifier Shelf Expiration Date Model / Serial / Lot [employer] Universa 6fr 28cm Firm Positioner Monofilament Tether Stent [id number] - [id number] Implanted:Qty: 1 on 03/21/2025 by Rachel Bryant MD at [facility] Stent Left: Ureter [employer] 12/11/2027 [id number] / / [id number] Procedures Procedure Name Priority Date/Time Associated Diagnosis Comments FL FLUOROSCOPY < 1 HOUR IP Routine 03/29/2025 7:10 AM CDT US SCROTUM Pending Discharge 03/22/2025 12:16 PM CDT EGFR Timed 03/22/2025 6:54 AM CDT BASIC METABOLIC PANEL Timed 03/22/2025 6:54 AM CDT CBC WITHOUT DIFFERENTIAL Routine 03/22/2025 6:54 AM CDT N. GONORRHOEAE/C. TRACHOMATIS AMPLIFICATION STAT 03/22/2025 2:22 AM CDT TX AN PROCEDURE PLACEHOLDER Routine 03/21/2025 11:34 PM CDT TX AN ELECTIVE SUPRAGLOTTIC AIRWAY Routine 03/21/2025 11:34 [...] LAB BLOOD ORDERABLES Final R esult [facility] [place] [address] * (ABNORMAL) CBC without differential (03/22/2025 6:54 AM CDT) [facility] WBC 7.80 3.80 - 9.90 K/cumm Hgb 13.5 13.0 - 17.5 g/dL [facility] Hct 39.7 38.9 - 50.3 % [facility] Plt 238 150 - 400 K/cumm [facility] MPV 8.9(L) 9.1 - 12.3 fL [facility] RBC 4.77 4.30 - 5.80 M/cumm [facility] MCV 83.2 81.3 - 96.4 fL [facility] MCH 28.3 27.1 - 33.3 pg [facility] MCHC 34.0 32.3 - 35.7 g/dL [facility] RDW CV 12.5 11.1 - 14.9 % [facility] RDW SD 37.8 35.7 - 48.1 fL [facility] NRBC abs 0.00 0.00 - 0.01 K/cumm [facility] Blood 03/22/2025 6:54 AM CDT 03/22/2025 7:16 AM CDT us Rachel Bryant MD LAB BLOOD ORDERABLES Final R esult [facility] [place] [address] * (ABNORMAL) Basic metabolic panel (03/22/2025 6:54 AM CDT) [facility] Sodium 142 135 - 145 mmol/L Potassium, pl 3.9 3.3 - 4.9 mmol/L [facility] Comment:Reviewed Chloride 108 97 - 110 mmol/L [facility] CO2 27 22 - 32 mmol/L [facility] Anion gap 7 2 - 15 mmol/L [facility] BUN 11 6 - 25 mg/dL [facility] Creatinine 1.28 0.80 - 1.30 mg/dL [facility] Glucose 106 70 - 199 mg/dL [facility] Comment: Interpretive Data Fasting glucose [...] Calcium 8.4(L) 8.5 - 10.3 mg/dL [facility] Blood 03/22/2025 6:54 AM CDT 03/22/2025 7:16 AM CDT Rachel Bryant MD LAB BLOOD ORDERABLES Final R esult Performing Organization Address [facility] de Phone Number [facility] [place] [address] * N. gonorrhoeae/C. trachomatis Amplification Urine (03/22/2025 2:22 AM CDT) C. trachomatis Not Detected Not Detected [facility] N. gonorrhoeae Not Detected Not Detected [facility] Comment: Interpretive Data This assay detects Chlamydia trachomatis and Neisseria gonorrhoeae by nucleic acid amplification testing (NAAT). This assay has been cleared by the [place] Food and Drug administration. The performance characteristics of this test have been verified by the [facility] Molecular Infectious Disease laboratory. The performance characteristics of this test have not been evaluated in individuals less than 14 years of age. Current Interpretive Data last revised 2023. Urine (None) 03/22/2025 2:22 AM CDT 03/22/2025 5:38 AM CDT Rachel Bryant MD LAB MICROBIOLOGY - GENERAL O RDERABLES Final Result Performing Organization Address [facility] de Phone Number [facility] [place] [address] [facility] * TX AN ELECTIVE SUPRAGLOTTIC AIRWAY, TX AN PROCEDURE PLACEHOLDER (03/21/2025 11:34 PM CDT) [...] MD LAB BLOOD ORDERABLES Patricia l Result [facility] [place] [address] * (ABNORMAL) Protime-INR (03/21/2025 12:16 PM CDT) PT 15.5(H) 9.7 - 13.0 sec INR 1.42(H) 0.90 - 1.20 [facility] Comment: Interpretive data Oral anticoagulant therapeutic [...] ORDERABLES Patricia l Result Performing Organization Address [facility] Co de Phone Number [facility] [place] [address] * Type and screen (03/21/2025 12:16 PM CDT) Vanesa, indirect Negative ABO Rh A Negative [facility] Blood 03/21/2025 12:1 6 PM CDT 03/21/2025 12:30 PM CDT Narrative [facility] - 03/21/2025 1:18 PM CDT Has the patient had Daratumumab or Isatuximab in the past 6 months?->Unknown [place] MD LAB BLOOD BANK TEST ORDER PRAVEENA Final Result Performing Organization Address [facility] de Phone Number [facility] [place] [address] * CT Body Outside Consult (03/21/2025 11:01 [...] images may or may not represent the port lions source data set and thus may contain changes that may lower the accuracy of this second-opinion interpretation. Electronically signed by: Johanna Morales 03/21/2025 11:17 AM CDT EXAMINATION: RADIOLOGY CONSULTATION ON OUTSIDE IMAGING STUDY STUDY INITIALLY PERFORMED: [facility] 03/21/2025 TYPE OF STUDY: Multiple CT [...] ON OUTSIDE IMAGING STUDY STUDY INITIALLY PERFORMED: [facility] 03/21/2025 TYPE OF STUDY: Multiple CT [...] images may or may not represent the port lions source data set and thus may contain [...] Fuentes MD LAB BLOOD ORDERABLES Final Result [facility] [place] [address] * (ABNORMAL) Differential, auto (03/21/2025 10:18 AM CDT) Neutrophil abs 9.99(H) 1.50 - 6.50 K/cumm Imm gran abs 0.09 0.00 - 0.10 K/cumm [facility] Lymphocyte abs 1.30 0.80 - 3.30 K/cumm [facility] Monocyte abs 1.05(H) 0.20 - 0.80 K/cumm [facility] Eosinophil abs 0.02 0.00 - 0.50 K/cumm [facility] Basophil abs 0.05 0.00 - 0.10 K/cumm [facility] Neutrophil pct 79.9 % [facility] Comment: Interpretive Data Percent cell count reference ranges are not reported, since discordance with absolute values may lead to misinterpretation of CBC data. Current Interpretive Data was last revised on 2018. Imm gran pct 0.7 % [facility] Comment: Interpretive Data Percent cell count reference ranges are not reported, since discordance with absolute values may lead to misinterpretation of CBC data. Current Interpretive Data was last revised on 2018. Lymphocyte pct 10.4 % [facility] Comment: Interpretive Data Percent cell count reference ranges are not reported, since discordance with absolute values may lead to misinterpretation of CBC data. Current Interpretive Data was last revised on 2018. Monocyte pct 8.4 % [facility] Comment: Interpretive Data Percent cell count reference ranges are not reported, since discordance with absolute values may lead to misinterpretation of CBC data. Current Interpretive Data was last revised on 2018. Eosinophil pct 0.2 % [facility] Comment: Interpretive Data Percent cell count reference ranges are not reported, since discordance with absolute values may lead to misinterpretation of CBC data. Current Interpretive Data was last revised on 2018. Basophil pct 0.4 % [facility] Comment: Interpretive Data Percent cell count reference ranges are not reported, since discordance with absolute values may lead to misinterpretation of CBC data. Current Interpretive Data was last revised on 2018. Blood 03/21/2025 10:1 8 AM CDT 03/21/2025 10:33 AM CDT Tammy Fuentes MD LAB BLOOD ORDERABLES Final Result [facility] [place] [address] * (ABNORMAL) Urinalysis reflex to microscopic (03/21/2025 10:18 AM CDT) Color, ur Yellow Yellow Clarity, ur Clear Clear [facility] Specific gravity, ur 1.031(H) 1.003 - 1.030 [facility] pH, urine 7.5 [facility] Comment: Interpretive Data U rine pH is affected by diet, medications, systemic acid-base disturbances, and renal tubular function. pH may affect urinary stone formation. For example, urine pH below 6.0 may help reduce the tendency for calcium phosphate stones and pH greater than 6.0 may reduce the tendency for uric acid stone formation. Source: [facility] Current Interpretive Data was last revised on 2017 Protein, ur ql Trace Negative [facility] Glucose, ur ql Negative Negative [facility] Ketones, ur Negative Negative [facility] Bilirubin, ur Negative Negative [facility] Blood, ur Negative Negative [facility] Urobilinogen, ur <2.0 <2.0 mg/dL [facility] Nitrite, ur Negative Negative [facility] Leukocyte esterase, ur Negative Negative [facility] UA reflex comment Reflex conditions for microscopic UA not met. [facility] Urine 03/21/2025 10:1 8 AM CDT 03/21/2025 10:24 AM CDT us [place] MD LAB URINE ORDERABLES Patricia brown Result [facility] [place] [address] * (ABNORMAL) CBC with auto differential (03/21/2025 10:18 AM CDT) WBC 12.50(H) 3.80 - 9.90 K/cumm Hgb 15.5 13.0 - 17.5 g/dL [facility] Hct 44.0 38.9 - 50.3 % [facility] Plt 322 150 - 400 K/cumm [facility] MPV 9.1 9.1 - 12.3 fL [facility] RBC 5.37 4.30 - 5.80 M/cumm [facility] MCV 81.9 81.3 - 96.4 fL [facility] MCH 28.9 27.1 - 33.3 pg [facility] MCHC 35.2 32.3 - 35.7 g/dL [facility] RDW CV 12.9 11.1 - 14.9 % [facility] RDW SD 37.5 35.7 - 48.1 fL [facility] NRBC abs 0.00 0.00 - 0.01 K/cumm [facility] Blood Venous blood specimen / Unknown 03/21/2025 10:18 AM CDT 03/21/2025 10:33 AM CDT [place] MD LAB BLOOD ORDERABLES Patricia l Result [facility] [place] [address] * (ABNORMAL) Lipase (03/21/2025 10:18 AM CDT) Lipase 187(H) 10 - 99 Units/L Blood Venous blood specimen / Unknown 03/21/2025 10:18 AM CDT 03/21/2025 10:33 AM CDT [place] MD LAB BLOOD ORDERABLES Patricia l Result Performing Organization Address [facility] Co de Phone Number [facility] [place] [address] * (ABNORMAL) Comprehensive metabolic panel (03/21/2025 10:18 AM CDT) Pathologist [facility] Sodium 141 135 - 145 mmol/L Potassium, pl See Comment 3.3 - 4.9 mmol/L [facility] Comment:Credited; Hemolyzed Specimen Chloride 106 97 - 110 mmol/L [facility] CO2 25 22 - 32 mmol/L [facility] Anion gap 10 2 - 15 mmol/L [facility] BUN 14 6 - 25 mg/dL [facility] Creatinine 1.34(H) 0.80 - 1.30 mg/dL [facility] Glucose 126 70 - 199 mg/dL [facility] Comment: Interpretive Data Fasting glucose [...] 2022. Calcium 9.3 8.5 - 10.3 mg/dL [facility] Bilirubin, total 0.5 0.1 - 1.2 mg/dL [facility] Protein, pl 7.7 6.5 - 8.5 g/dL [facility] Albumin 4.4 3.5 - 5.0 g/dL [facility] Alk phos 98 40 - 130 Units/L [facility] Comment:Hemolyzed; result ma y be falsely decreased ALT See Comment 7 - 55 Units/L [facility] Comment:Credited; Hemolyzed Specimen AST See Comment 10 - 50 Units/L [facility] Comment:Credited; Hemolyzed Specimen Blood Venous blood specimen / Unknown 03/21/2025 10:18 AM CDT 03/21/2025 10:33 AM CDT [place] MD LAB BLOOD ORDERABLES Patricia kevin Result [facility] [place] [address] from Last 3 Months Advance Directives For more information, please contact: [phone] * Full Code (Latest Code Status on File) Date Activated Date Inactivated Comments 03/21/2025 1:54 PM 03/23/2025 4:56 PM Care Teams Band Tier Relationship Specialty Start Date End Date No, Physician PCP - General 03/21/25
[2025-06-06] MEDS: MORPHINE SULFATE (*CRX) 2 MG/ML INJ IV PUSH ×2 (08:32→11:42)
--- NOTE | 2025-06-06 14:29 | P.PNAN_ITS ---
Anes - Initial Pre Proc Eval Procedure: Operation Date: 06/06/25 13:30 Proposed Procedures p Cystoscopy, Left Stent Exchange(Left) - Dragan Forbes MD Date/Time: 06/06/25 14:29 Surgeon: Mercedes Gonzalez MD Pre Op Diagnosis: Stent complication Patient Data Age: 29 Gender: M Height: 1.8 m Weight: 121.1 kg Last Vital Signs Temp 36.9 C 06/06/25 12:54 Pulse 65 06/06/25 12:54 Resp 16 06/06/25 12:54 BP 146/74 H 06/06/25 12:54 Pulse Ox 99 06/06/25 12:54 O2 Del Method Room Air 06/06/25 08:32 Allergies Allergy/AdvReac Type Severity Reaction Status Date / Time Penicillins Allergy Unknown Anaphylaxis Verified 06/06/25 12:51 Home Medications ?Medication ?Instructions ?Recorded ?Confirmed ?Type No Home Medications 06/06/25 06/06/25 History Laboratory Tests 06/05/25 06/05/25 22:18 23:53 WBC 8.7 K/mm3 (4.5-10.0) RBC 5.18 M/mm3 (4.6-6.20) Hgb 14.9 g/dL (14.0-18.0) Hct 43.4 % (42.0-52.0) MCV 83.8 fl (80-100) MCH 28.8 pg (26-34) MCHC 34.3 g/dl (32-36) RDW 12.2 % (11.5-14.5) Plt Count 350 k/mm3 (150-375) MPV 8.7 fl (7.4-10.4) Immature Gran % (Auto) 1.2 H % (0-0.5) Neut % (Auto) 49.6 % (45.5-73.1) Lymph % (Auto) 37.5 % (18.3-44.2) [place] % (Auto) 7.7 % (2.6-8.5) Eos % (Auto) 3.3 % (0-4.4) Baso % (Auto) 0.7 % (0.2-1.2) Lymph # (Auto) 3.26 H K/mm3 (0.9-3.2) [place] # (Auto) 0.7 H K/mm3 (0.1-0.6) Eos # (Auto) 0.3 K/mm3 (0-0.3) Baso # (Auto) 0.1 K/mm3 (0.0-0.1) Abs Immat Gran (auto) 0.10 H K/mm3 (0.00-0.031) Absolute Neuts (auto) 4.3 K/mm3 (1.3-6.7) Absolute Nucleated RBC 0.000 K/mm3 (0.0-0.012) Nucleated RBC % 0.0 % (0.0-0.2) Sodium 134 L mmol/L (137-145) Potassium 3.4 mmol/L (3.4-5.0) Chloride 102 mmol/L (98-107) Carbon Dioxide 24 mmol/L (22-30) Anion Gap 8 mmol/L (4-12) BUN 12 mg/dL (9-20) Creatinine 1.05 mg/dL (0.7-1.3) Estim Creat Clear Calc Not Reportable Estimated GFR > 60 (59 - ) Glucose 108 mg/dL (65-110) Calcium 9.2 mg/dL (8.4-10.2) Urine Color Dark stefan (Yellow) Urine Appearance Turbid H (Clear) Urine pH 6.0 (5.0-9.0) Ur Specific [place] 1.027 (1.001-1.035) Urine Protein 3+ H mg/dL (Negative) Urine Glucose (UA) Negative mg/dL (Negative) Urine Ketones Trace H mg/dL (Negative) Ur Blood (Man) 3+ H (Negative) Urine Nitrate Negative (Negative) Urine Bilirubin 1+ H (Negative) Urine Urobilinogen 1.0 mg/dL (<2.0) Add Ur Microanalysis Reviewed Leukocyte Esterase Rfl 2+ H ABNER/UL (Negative) Urine RBC >100 H /hpf (0-2) Urine WBC 51-100 H /hpf (0-3) Ur Squamous Epith Cells Few /hpf (Few) Calcium Oxalate Crystal Present /hpf (None) Urine Bacteria None seen /hpf Urine Casts 3-5 Patient hx anesthesia problems: none Family hx anesthesia problems: none Results Review: All pre-operative results and documents have been reviewed as part of the pre-o perative evaluation. [facility] Family History Family History Father Diabetes mellitus Grandparent Diabetes mellitus Social History Social History Smoking status: Current every day smoker Tobacco type: e-cigarettes/vaping Alcohol intake: current Substance use: current Substance use type: marijuana Last use: 06/05/2025 Lack of Transportation: No Lack of Food: Sometimes True Current Housing: I Have Housing Concerned About Future Housing: No Difficulty Paying Gas/Electric Bills: YES Difficulty Paying for Meds: No Currently Unemployed: No Education: High School Diploma/GED Difficulty w/ Childcare or Family Care: No Spiritual care concerns: No Anes - Eval Final PreProcedure Day of Procedure 06/06/25 14:29 Patient weight: obese Heart: regular rate and rhythm Lungs: decreased breath sounds Airway: Mallampati scale class III Neurological: alert and oriented Last oral intake: >/= 8 hours ASA classification: III Emergent: no Anesthetic plan: proceed Anesthesia type and monitoring: general GIVS and standard monitoring Results Review: All pre-operative results and documents have been reviewed as part of the pre- operative evaluation. Informed Consent: The patient's anesthetic plan and its attendant risks and benefits were discussed with the patient/family/POA. Questions were solicited and answers provided to the satisfaction of the patient/family/POA.
--- NOTE | 2025-06-06 14:58 | W.PM.PROC2 ---
Procedure Note - Detailed Date of Procedure 06/06/25 Pre-op Diagnosis Left renal stone Post-op Diagnosis Same Procedure Performed Cystoscopy, left ureteral stent removal Surgeon Dragan Forbes MD Anesthesia MAC Description of Procedure Patient is brought to the operative suite where he was prepped draped in routine sterile fashion while in supine position. 2% xylocaine jelly was introduced intraurethrally and systemic sedation is administered per the anesthesia department. Cystoscopy was undertaken with a 16 F flexible cystoscope. There was no urethral stricture. There was no intravesical neoplasm. The left ureteral stent is a minimally encrusted. It is removed with very minimal tension. Determination there is some oozing blood his prostatic urethra so I placed a 16 coude catheter. Patient tolerated the procedure well was taken recovery room good condition. Drains No Packing No Pathology None sent Complications No immediate complications
[2025-06-06] MEDS: LACTATED RINGERS 1,000 ML 30 ML IV CONT (15:02)
[2025-06-06] MEDS: fentaNYL CITRATE INJ (*CRX) 100 MCG/2 ML VIAL 25 MCG IV PUSH ×8 (15:27→16:09)
--- NOTE | 2025-06-06 15:49 | PM.IMPN ---
Progress Note: A&P Assessment and Plan (1) Hydronephrosis of left kidney: Code(s): N13.30 - Unspecified hydronephrosis Status: Acute (2) Ureteral stent present: Code(s): Z96.0 - Presence of urogenital implants Status: Acute (3) UTI (urinary tract infection): Qualifiers: Hematuria presence: with hematuria Urinary tract infection type: acute cystitis Qualified Code(s): N30.01 - Acute cystitis with hematuria Code(s): N39.0 - Urinary tract infection, site not specified Status: Acute Plan 29-year-old male presents to [facility] ER on 06/06/2025 with the complaint of left flank and left lower abdominal pain. Patient has a history of kidney stones. He reports 5 months prior he was diagnosed with a proximal left 26 mm kidney stone and had a stent placed at [facility]. Afterwards he could not follow-up reports they refuse to remove the stent due to lack of insurance. 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 About 5 weeks prior to admission he was helping someone after a refrigerator fell on them. Since then he had developed worsening left-sided pain along with burning on urination and blood and clots in his urine. Denies any fever. Denies vomiting, diarrhea, chest pain, shortness of breath. CT abdomen pelvis showed moderate dilation of the left renal collecting system and pelvis. Left internal ureteral stent in expected position. Left nephrolithiasis noted. Urinalysis grossly abnormal with 100 RBC, 51-100 wbc's. Patient given Levaquin in the ER. Urine cultures pending. Urology consultation obtained. UTI Left nephrolithiasis Status post left ureteral stent placed a few months ago at [facility] DVT prophylaxis SCDs Code status full code Subjective Date/time seen: 06/06/25 15:49 Interval history: No new complaints. Has left flank pain. Discussed with urologist. Review of Systems Review of Systems: All systems reviewed & are unremarkable except as noted in HPI and below (Subjective/HPI) Exam Narrative: GENERAL: Well-appearing well-nourished, non-toxic, in no acute distress. HEAD: Normocephalic, atraumatic. RESPIRATORY: Airway patent, respirations nonlabored. Clear to auscultation bilaterally, no rales, rhonchi, wheezing. CARDIOVASCULAR: Regular rate and rhythm without murmurs, rubs, or gallops. ABDOMINAL: Soft, tenderness palpation left mid to lower abdomen, left flank region, nondistended. Normoactive BS. MUSCULOSKELETAL: Moves all extremities. No gross deformities. SKIN: Warm, dry, normal color. NEURO: A&O X3. Speech clear. Cranial nerves II-XII grossly intact. Steady gait. No ataxic movements. PSYCHIATRIC: Appropriate mood and affect. Normal interaction. Objective Data Vital Signs Vital Signs: Vital Signs - 24 hr 06/05/25 21:14 06/05/25 23:07 06/06/25 00:36 Temperature 97.9 F Pulse Rate 97 72 Respiratory Rate 20 17 Blood Pressure 148/77 H 156/108 H 142/79 H Pulse Oximetry 97 97 99 Oxygen Delivery Room Air Oxygen Flow Rate 06/06/25 01:31 06/06/25 02:07 06/06/25 03:30 Temperature Pulse Rate 74 70 65 Respiratory Rate 16 13 17 Blood Pressure 125/78 111/69 Pulse Oximetry 95 97 94 Oxygen Delivery Oxygen Flow Rate 06/06/25 03:51 06/06/25 04:00 06/06/25 04:31 Temperature Pulse Rate 77 73 Respiratory Rate 16 15 Blood Pressure 121/69 120/82 118/69 Pulse Oximetry 95 97 97 Oxygen Delivery Oxygen Flow Rate 06/06/25 06:00 06/06/25 08:32 06/06/25 12:54 Temperature 97.1 F L 98.4 F Pulse Rate 71 65 Respiratory Rate 16 16 Blood Pressure 128/67 146/74 H Pulse Oximetry 97 99 Oxygen Delivery Room Air Oxygen Flow Rate 06/06/25 15:02 06/06/25 15:15 06/06/25 15:30 Temperature 97.7 F Pulse Rate 78 58 L 62 Respiratory Rate 16 18 16 Blood Pressure 108/71 111/66 133/72 Pulse Oximetry 98 100 100 Oxygen Delivery Simple Face Mask Simple Face Mask Room Air Oxygen Flow Rate 6 6 Intake/Output Intake/Output: Intake & Output 06/03/25 06/04/25 06/05/25 06/06/25 23:59 23:59 23:59 23:59 Intake Total 1150 Balance 1150 Meds/Results Medications: Active Medications Generic Name Dose Route Start Last Admin Trade Name Freq PRN Reason Stop Dose Admin Fentanyl Citrate 25 mcg 06/06/25 14:30 06/06/25 15:37 Fentanyl Citrate Inj (*Crx) 100 Mcg/2 Ml Vial IV PUSH 25 mcg Q2M PRN Administration Pain Levofloxacin/Dextrose 750 mg in 150 mls @ 100 mls/hr 06/07/25 02:00 Levaquin 750 Mg/D5w 150 Ml IVPB Q24H ZARINA Lactated Ringer's 1,000 mls @ 30 mls/hr 06/06/25 14:30 06/06/25 15:02 Lr - Lactated Ringers Iv IV CONT 30 mls/hr .Q24H ZARINA Administration Lactated Ringer's 1,000 mls @ 30 mls/hr 06/06/25 14:30 Lr - Lactated Ringers Iv IV CONT .Q24H ZARINA Morphine Sulfate 2 mg 06/06/25 05:52 06/06/25 11:42 Morphine Sulfate (*Crx) 2 Mg/Ml Inj IV PUSH 2 mg Q2H PRN Administration Pain Rated 7-10 Ondansetron HCl 4 mg 06/06/25 14:30 Ondansetron Inj 4 Mg/2 Ml Vial IV PUSH ONCE PRN Nausea Radiology Results: ITS Impressions Abdomen/Pelvis CT 06/06/25 08:12 IMPRESSION: 1. Moderate dilation of the left renal collecting system and pelvis. Left internal ureteral stent in expected position. 2: Left nephrolithiasis. Labs Labs: Laboratory Results - last 24 hr 06/05/25 06/05/25 22:18 23:53 WBC 8.7 RBC 5.18 Hgb 14.9 Hct 43.4 MCV 83.8 MCH 28.8 MCHC 34.3 RDW 12.2 Plt Count 350 MPV 8.7 Immature Gran % (Auto) 1.2 H Neut % (Auto) 49.6 Lymph % (Auto) 37.5 [place] % (Auto) 7.7 Eos % (Auto) 3.3 Baso % (Auto) 0.7 Lymph # (Auto) 3.26 H [place] # (Auto) 0.7 H Eos # (Auto) 0.3 Baso # (Auto) 0.1 Abs Immat Gran (auto) 0.10 H Absolute Neuts (auto) 4.3 Absolute Nucleated RBC 0.000 Nucleated RBC % 0.0 Sodium 134 L Potassium 3.4 Chloride 102 Carbon Dioxide 24 Anion Gap 8 BUN 12 Creatinine 1.05 Estim Creat Clear Calc Not Reportable Estimated GFR > 60 Glucose 108 Calcium 9.2 Urine Color Dark stefan Urine Appearance Turbid H Urine pH 6.0 Ur Specific [place] 1.027 Urine Protein 3+ H Urine Glucose (UA) Negative Urine Ketones Trace H Ur Blood (Man) 3+ H Urine Nitrate Negative Urine Bilirubin 1+ H Urine Urobilinogen 1.0 Add Ur Microanalysis Reviewed Leukocyte Esterase Rfl 2+ H Urine RBC >100 H Urine WBC 51-100 H Ur Squamous Epith Cells Few Calcium Oxalate Crystal Present Urine Bacteria None seen Urine Casts 3-5
[2025-06-06] MEDS: HYDROmorphone HCL INJ (*CRX) 1 MG/ML SYR IV PUSH (16:15)
[2025-06-06] MEDS: ONDANSETRON INJ 4 MG/2 ML VIAL IV PUSH (17:32)
[2025-06-06] MEDS: HYDROcodone/acetaminophen (*CRX) 5-325 MG TABLET 1 TAB PO (19:45)
[2025-06-06] MEDS: MORPHINE SULFATE (*CRX) 4 MG/ML INJ IV PUSH (22:09)
--- NOTE | 2025-06-06 22:45 | PC.NURSE ---
On 06/06/25, the RN-LP, Charlene Wilson, provided care and completed [employer] documentation on this patient. I have reviewed Charlene's documentation and agree with the findings.
[2025-06-07] MEDS: levoFLOXacin 750 MG/D5W 150 ML 750 MG/150 ML BAG 100 MG IVPB (02:22)
[2025-06-07] MEDS: KETOROLAC 10 MG TABLET PO ×2 (02:33→18:28)
[2025-06-07] MEDS: HYDROcodone/acetaminophen (*CRX) 5-325 MG TABLET 1 TAB PO ×3 (05:41→23:45)
[2025-06-07 06:00] VITALS: BP 120/74; PULSE 56; RESP 18; TEMP 36.9; O2SAT 99
[2025-06-07 06:16] LABS: Hematocrit 42.7 % (42.0-52.0); Hemoglobin 14.4 g/dL (14.0-18.0); Immature Granulocyte Percent A 0.6 % (0-0.5); Lymphocytes Absolute Auto 1.35 K/mm3 (0.9-3.2); Mean Corpuscular HGB Conc 33.7 g/dl (32-36); Mean Corpuscular Hemoglobin 28.4 pg (26-34); Mean Corpuscular Volume 84.2 fl (80-100); Nucleated Red Blood Cells Absolute Auto 0.000 K/mm3 (0.0-0.012); Nucleated Red Blood Cells Perc 0.0 % (0.0-0.2); Platelet Count Result 313 k/mm3 (150-375); Red Blood Count 5.07 M/mm3 (4.6-6.20); White Blood Count 6.6 K/mm3 (4.5-10.0)
[2025-06-07 06:58] LABS: Alanine Aminotransferase 113 U/L (6-50); Albumin Level 4.0 g/dL (3.5-5.1); Alkaline Phosphatase 86 U/L (38-126); Anion Gap 8 mmol/L (4-12); Aspartate Amino Transferase 87 U/L (17-59); Bilirubin,Total 0.8 mg/dL (0.2-1.3); Blood Urea Nitrogen 7 mg/dL (9-20); Calcium 9.2 mg/dL (8.4-10.2); Carbon Dioxide 27 mmol/L (22-30); Chloride 105 mmol/L (98-107); Estimated CRCL calculation 147 ml/min; Estimated Glomerular Filt Rate > 60; Glucose 89 mg/dL (65-110); Magnesium 2.2 mg/dL (1.6-2.3); Potassium 4.0 mmol/L (3.4-5.0); Sodium 140 mmol/L (137-145); Total Protein 7.0 g/dL (6.3-8.2)
--- NOTE | 2025-06-07 11:50 | P.PNIM_ITS ---
Progress Note: A&P Assessment and Plan (1) Hydronephrosis of left kidney: Code(s): N13.30 - Unspecified hydronephrosis Status: Acute (2) Ureteral stent present: Code(s): Z96.0 - Presence of urogenital implants Status: Acute (3) UTI (urinary tract infection): Qualifiers: Hematuria presence: with hematuria Urinary tract infection type: acute cystitis Qualified Code(s): N30.01 - Acute cystitis with hematuria Code(s): N39.0 - Urinary tract infection, site not specified Status: Acute Plan 29-year-old male presents to [facility] ER on 06/06/2025 with the complaint of left flank and left lower abdominal pain. Patient has a history of kidney stones. He reports 5 months prior he was diagnosed with a proximal left 26 mm kidney stone and had a stent placed at [facility]. Afterwards he could not follow-up reports they refuse to remove the stent due to lack of insurance. 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 About 5 weeks prior to admission he was helping someone after a refrigerator fell on them. Since then he had developed worsening left-sided pain along with burning on urination and blood and clots in his urine. Denies any fever. Denies vomiting, diarrhea, chest pain, shortness of breath. CT abdomen pelvis showed moderate dilation of the left renal collecting system and pelvis. Left internal ureteral stent in expected position. Left nephrolithiasis noted. Urinalysis grossly abnormal with 100 RBC, 51-100 wbc's. Patient given Levaquin in the ER. Urine cultures pending. Urology consultation obtained. left ureteral stent remvoed 06/06/2025. UTI Left nephrolithiasis Status post left ureteral stent placed a few months ago at [facility] hematuria: some oozing blood from prostatic urethra and hence a catheter has been placed. plans to remove noted later today. will await removal DVT prophylaxis SCDs Code status full code Subjective Date/time seen: 06/07/25 11:50 Interval history: no overnight events, feels sore but left flank pain has imrpoved remains afebrile. urine culture pending Review of Systems Review of Systems: All systems reviewed & are unremarkable except as noted in HPI and below (Subjective/HPI) Exam Narrative: GENERAL: Well-appearing well-nourished, non-toxic, in no acute distress. HEAD: Normocephalic, atraumatic. RESPIRATORY: Airway patent, respirations nonlabored. Clear to auscultation bilaterally, no rales, rhonchi, wheezing. CARDIOVASCULAR: Regular rate and rhythm without murmurs, rubs, or gallops. ABDOMINAL: Soft,nontender nondistended. Normoactive BS. MUSCULOSKELETAL: Moves all extremities. No gross deformities. SKIN: Warm, dry, normal color. NEURO: A&O X3. Speech clear. Cranial nerves II-XII grossly intact. Steady gait. No ataxic movements. PSYCHIATRIC: Appropriate mood and affect. Normal interaction. Objective Data Vital Signs Vital Signs: Vital Signs - 24 hr 06/06/25 12:54 06/06/25 15:00 06/06/25 15:02 Temperature 98.4 F 97.5 F L 97.7 F Pulse Rate 65 60 78 Respiratory Rate 16 18 16 Blood Pressure 146/74 H 128/75 108/71 Pulse Oximetry 99 96 98 Oxygen Delivery Simple Face Mask Oxygen Flow Rate 6 06/06/25 15:15 06/06/25 15:30 06/06/25 15:45 Temperature Pulse Rate 58 L 62 60 Respiratory Rate 18 16 14 Blood Pressure 111/66 133/72 140/79 Pulse Oximetry 100 100 99 Oxygen Delivery Simple Face Mask Room Air Room Air Oxygen Flow Rate 6 06/06/25 16:00 06/06/25 16:15 06/06/25 18:18 Temperature 97.5 F L Pulse Rate 61 59 L 56 L Respiratory Rate 14 14 18 Blood Pressure 115/72 122/81 108/68 Pulse Oximetry 97 99 99 Oxygen Delivery Room Air Room Air Oxygen Flow Rate 06/06/25 18:19 06/06/25 20:30 06/06/25 22:00 Temperature 97.8 F 99.0 F Pulse Rate 67 71 Respiratory Rate 18 18 Blood Pressure 138/80 127/64 Pulse Oximetry 99 97 Oxygen Delivery Room Air Oxygen Flow Rate 06/07/25 06:00 06/07/25 07:54 Temperature 98.4 F Pulse Rate 56 L Respiratory Rate 18 Blood Pressure 120/74 Pulse Oximetry 99 Oxygen Delivery Room Air Oxygen Flow Rate Intake/Output Intake/Output: Intake & Output 06/04/25 06/05/25 06/06/25 06/07/25 23:59 23:59 23:59 23:59 Intake Total 1790 510 Output Total 775 1775 Balance 1015 -1265 Meds/Results Medications: Active Medications Generic Name Dose Route Start Last Admin Trade Name Freq PRN Reason Stop Dose Admin Hydrocodone Bitart/Acetaminophen 1 tab 06/06/25 17:12 06/07/25 05:41 Hydrocodone/Acetaminophen (*Crx) 5-325 Mg Tablet PO 1 tab Q4H PRN Administration Pain Rated 7-10 Levofloxacin/Dextrose 750 mg in 150 mls @ 100 mls/hr 06/07/25 02:00 06/07/25 03:52 Levaquin 750 Mg/D5w 150 Ml IVPB Infused Q24H ZARINA Infusion Ketorolac Tromethamine 10 mg 06/06/25 17:12 06/07/25 02:33 Ketorolac 10 Mg Tablet PO 10 mg Q6H PRN Administration Pain Rated 4-6 Ondansetron HCl 4 mg 06/06/25 17:02 06/06/25 17:32 Ondansetron Inj 4 Mg/2 Ml Vial IV PUSH 4 mg Q6H PRN Administration Nausea And Vomiting Radiology Results: ITS Impressions Abdomen/Pelvis CT 06/06/25 08:12 IMPRESSION: 1. Moderate dilation of the left renal collecting system and pelvis. Left internal ureteral stent in expected position. 2: Left nephrolithiasis. Labs Labs: Laboratory Results - last 24 hr 06/07/25 05:34 WBC 6.6 RBC 5.07 Hgb 14.4 Hct 42.7 MCV 84.2 MCH 28.4 MCHC 33.7 RDW 12.1 Plt Count 313 MPV 8.8 Immature Gran % (Auto) 0.6 H Neut % (Auto) 69.3 Lymph % (Auto) 20.6 [place] % (Auto) 7.6 Eos % (Auto) 1.4 Baso % (Auto) 0.5 Lymph # (Auto) 1.35 [place] # (Auto) 0.5 Eos # (Auto) 0.1 Baso # (Auto) 0.0 Abs Immat Gran (auto) 0.04 H Absolute Neuts (auto) 4.6 Absolute Nucleated RBC 0.000 Nucleated RBC % 0.0 Sodium 140 Potassium 4.0 Chloride 105 Carbon Dioxide 27 Anion Gap 8 BUN 7 L D Creatinine 0.87 Estim Creat Clear Calc 147 Estimated GFR > 60 Glucose 89 Calcium 9.2 Magnesium 2.2 Total Bilirubin 0.8 AST 87 H ALT 113 H Alkaline Phosphatase 86 Total Protein 7.0 Albumin 4.0
--- NOTE | 2025-06-07 13:15 | WPDANESPN ---
Anes - Prog Note Post-Op Date/Time: 06/07/25 13:15 Cardiovascular status: normal Respiratory status: normal Airway patency: baseline Mental status: baseline Post-Op hydration status: normal Vital Signs: Last Vital Signs Temp 98.4 F 06/07/25 06:00 Pulse 56 L 06/07/25 06:00 Resp 18 06/07/25 06:00 BP 120/74 06/07/25 06:00 Pulse Ox 99 06/07/25 06:00 O2 Del Method Room Air 06/07/25 07:54 O2 Flow Rate 6 06/06/25 15:15 Pain Score (VAS): 0 I/O: Intake & Output 06/06/25 06/07/25 06/07/25 23:59 07:59 15:59 Intake Total 640 150 360 Output Total 775 1775 Balance -135 -1625 360 Laboratory Tests 06/07/25 05:34 06/07/25 05:34 06/07/25 05:34 WBC 6.6 RBC 5.07 Hgb 14.4 Hct 42.7 MCV 84.2 MCH 28.4 MCHC 33.7 RDW 12.1 Plt Count 313 MPV 8.8 Immature Gran % (Auto) 0.6 H Neut % (Auto) 69.3 Lymph % (Auto) 20.6 [place] % (Auto) 7.6 Eos % (Auto) 1.4 Baso % (Auto) 0.5 Lymph # (Auto) 1.35 [place] # (Auto) 0.5 Eos # (Auto) 0.1 Baso # (Auto) 0.0 Abs Immat Gran (auto) 0.04 H Absolute Neuts (auto) 4.6 Absolute Nucleated RBC 0.000 Nucleated RBC % 0.0 Sodium 140 Potassium 4.0 Chloride 105 Carbon Dioxide 27 Anion Gap 8 BUN 7 L D Creatinine 0.87 Estim Creat Clear Calc 147 Estimated GFR > 60 Glucose 89 Calcium 9.2 Magnesium 2.2 Total Bilirubin 0.8 AST 87 H ALT 113 H Alkaline Phosphatase 86 Total Protein 7.0 Albumin 4.0 Post-procedural complaints: none Patient Feedback: Patient satisfied with anesthetic care.
[2025-06-07 14:00] VITALS: BP 144/73; PULSE 80; RESP 18; TEMP 36.1; O2SAT 97
[2025-06-07 22:00] VITALS: BP 135/77; PULSE 64; RESP 18; TEMP 37.1; O2SAT 96
[2025-06-08] MEDS: levoFLOXacin 750 MG/D5W 150 ML 750 MG/150 ML BAG 100 MG IVPB (01:50)
[2025-06-08 06:00] VITALS: BP 128/74; PULSE 57; RESP 18; TEMP 36.4; O2SAT 99
[2025-06-08] MEDS: KETOROLAC 10 MG TABLET PO (08:39)
--- NOTE | 2025-06-08 11:43 | P.DS_ITS ---
DS: Admitting Diagnosis Discharge Date 06/08/2025 Admitting Diagnosis flank pain DS: Discharge Diagnosis Discharge Diagnosis (1) Hydronephrosis of left kidney: Code(s): N13.30 - Unspecified hydronephrosis Status: Acute (2) Ureteral stent present: Code(s): Z96.0 - Presence of urogenital implants Status: Acute (3) UTI (urinary tract infection): Qualifiers: Hematuria presence: with hematuria Urinary tract infection type: acute cystitis Qualified Code(s): N30.01 - Acute cystitis with hematuria Code(s): N39.0 - Urinary tract infection, site not specified Status: Acute DS: Summary Hospital Course Hospital Course: 29-year-old male presents to [facility] ER on 06/06/2025 with the complaint of left flank and left lower abdominal pain. Patient has a history of kidney stones. He reports 5 months prior he was diagnosed with a proximal left 26 mm kidney stone and had a stent placed at [facility]. Afterwards he could not follow-up reports they refuse to remove the stent due to lack of insurance. 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 About 5 weeks prior to admission he was helping someone after a refrigerator fell on them. Since then he had developed worsening left-sided pain along with burning on urination and blood and clots in his urine. Denies any fever. Denies vomiting, diarrhea, chest pain, shortness of breath. CT abdomen pelvis showed moderate dilation of the left renal collecting system and pelvis. Left internal ureteral stent in expected position. Left nephrolithiasis noted. Urinalysis grossly abnormal with 100 RBC, 51-100 wbc's. Patient given Levaquin in the ER. Urine cultures pending. Urology consultation obtained. left ureteral stent remvoed 06/06/2025. [place] better. Due to prostatic urethral bleed catheter was placed which was removed this afternoon. He was then discharge to follow-up with urology as an outpatient basis UTI Left nephrolithiasis Status post left ureteral stent placed a few months ago at [facility] hematuria: some oozing blood from prostatic urethra and hence a catheter has been placed. Removed [place] catheter prior to discharge. DVT prophylaxis SCDs Code status full code Time Spent with Patient Time attestation: Total time spent providing and/or coordinating discharge services: 35 mins Exam Narrative: GENERAL: Well-appearing well-nourished, non-toxic, in no acute distress. HEAD: Normocephalic, atraumatic. RESPIRATORY: Airway patent, respirations nonlabored. Clear to auscultation bilaterally, no rales, rhonchi, wheezing. CARDIOVASCULAR: Regular rate and rhythm without murmurs, rubs, or gallops. ABDOMINAL: Soft,nontender nondistended. Normoactive BS. MUSCULOSKELETAL: Moves all extremities. No gross deformities. SKIN: Warm, dry, normal color. NEURO: A&O X3. Speech clear. Cranial nerves II-XII grossly intact. Steady gait. No ataxic movements. PSYCHIATRIC: Appropriate mood and affect. Normal interaction. DS: Data Procedures/Treatments: Procedure Note - Detailed Date of Procedure 06/06/25 Pre-op Diagnosis Left renal stone Post-op Diagnosis Same Procedure Performed Cystoscopy, left ureteral stent removal Surgeon Dragan Forbes MD Anesthesia MAC Description of Procedure Patient is brought to the operative suite where he was prepped draped in routine sterile fashion while in supine position. 2% xylocaine jelly was introduced intraurethrally and systemic sedation is administered per the anesthesia department. Cystoscopy was undertaken with a 16 F flexible cystoscope. There was no urethral stricture. There was no intravesical neoplasm. The left ureteral stent is a minimally encrusted. It is removed with very minimal tension. Determination there is some oozing blood his prostatic urethra so I placed a 16 coude catheter. Patient tolerated the procedure well was taken recovery room good condition. Drains No Packing No Pathology None sent Complications No immediate complications Imaging Radiologist's impression: ITS Impressions Abdomen/Pelvis CT 06/06/25 08:12 IMPRESSION: 1. Moderate dilation of the left renal collecting system and pelvis. Left internal ureteral stent in expected position. 2: Left nephrolithiasis. Discharge Plan Discharge Attending physician on discharge: Shmuel Wooten Consulting providers: Ruddy Craig Discharging Clinician: Shmuel Wooten Anticipated Discharge Date/Time: 06/08/25 11:47 Patient Disposition: Home Activity: as tolerated Diet: regular Patient Instructions: Antibiotic Form Patient Language: Gabonese Stand Alone Forms: General Discharge Information Follow-up/Referrals: Ruddy Craig MD [Physician] - 2 Weeks UNKNOWN,DOCTOR [Primary Care Provider] - 1 Week Discharge Medications: New ketorolac 10 mg Tablet 10 mg PO Q6H PRN (Reason: Pain Rated 4-6) Qty: 10 0RF levofloxacin 750 mg tablet 750 mg PO DAILY Qty: 10 0RF No Action No Home Medications Date of admission: 06/06/25 04:30 Primary Care Provider: UNKNOWN,DOCTOR Admitting Provider: Mercedes Gonzalez Attending physician on admission: Mercedes Gonzalez Condition: Stable
== END 2025-06-08 14:03 | disposition home or self-care (01) ==
LOC: ANHED 06-06 04:46 → ANH3MEDSUR 06-06 15:08
PROVIDERS: Emergency Medicine; Urology; Admitting Provider General Practice; Emergency Provider Physician Assistant; Visit Provider Internal Medicine
PROC: (CPT 52352; principal; 2025-06-06 13:30)
DX: N30.01 Acute cystitis with hematuria (principal); N13.30 Unspecified hydronephrosis; Z87.442 Personal history of urinary calculi; Z96.0 Presence of urogenital implants; F17.290 Nicotine dependence, other tobacco product, uncomplicated; F12.90 Cannabis use, unspecified, uncomplicated; E66.9 Obesity, unspecified; Z68.37 Body mass index [BMI] 37.0-37.9, adult
CPT/HCPCS: 52310; 36415; 74176; 80048; 80053; 81001; 83735; 85025; 87086; 96365; 96366; 96374; 96375; 99285; A9270; C1769; G0378; J1171; J1956; J2003; J2270; J2405; J2704; J3010; J7030; J7120